=== PATIENT | female | born 1945 | race Caucasian/White ===

== ENCOUNTER 2017-04-18 16:41 | Observation (INO) | payer MEDICAID, MEDICARE ==
--- NOTE | 2017-04-18 17:01 | RADIOLOGY REPORT (SQ) ---
EXAM DESCRIPTION: CHEST SINGLE VIEW COMPLETED DATE/TIME: 04/18/2017 4:53 pm REASON FOR STUDY: STROKE ALERT COMPARISON: 01/19/2012 EXAM PARAMETERS: NUMBER OF VIEWS: One view. TECHNIQUE: Single frontal radiographic view of the chest acquired. RADIATION DOSE: NA LIMITATIONS: None. FINDINGS: LUNGS AND PLEURA: No opacities, masses or pneumothorax. No pleural effusion. MEDIASTINUM AND HILAR STRUCTURES: No masses. Contour normal. HEART AND VASCULAR STRUCTURES: Heart normal in size. Normal vasculature. BONES: No acute findings. HARDWARE: None in the chest. OTHER: No other significant finding. IMPRESSION: NO ACUTE RADIOGRAPHIC FINDING IN THE CHEST. TECHNICAL DOCUMENTATION: JOB ID: [id number]
--- NOTE | 2017-04-18 17:03 | ER Document Report ---
ED Neuro Symptoms/Deficit - General Stated Complaint: STROKE LIKE SYMPTOMS Time Seen by Provider: 04/18/17 16:57 Information source: Patient Notes: 72-year-old female with past medical history as recorded including a CVA who presents today with the onset yesterday according to the patient when she woke up feeling a little "off balance" and having some difficulty speaking. Patient told her son whom she was visiting in [place] [place] who wanted to take the patient to the hospital but the patient refused. She was scheduled to get on the bus to come back to [place] that she did. When she got off the bus the daughter noted that she was having some gait instability and took her immediately here to the emergency department. Patient denies any headache, chest pain, shortness of breath, abdominal pain, nausea, vomiting, fevers, blurry vision, or obvious weakness or numbness at this time. Patient states she believes she used to be on blood thinners but does not remember which blood thinning medication she was taking. - HPI Patient complains to provider of: Other - See above Onset: Other - See above Awoke with symptoms: Yes Symptoms are: Intermittent episodes Duration: Better, Gone now Quality of pain: No pain Severity: Moderate Pain Level: Denies Context: Other - See above Loss of consciousness: No loss of consciousness Was STROKE ALERT Called: Yes Baseline Cognitive: Alert, oriented X 3 Baseline Gait: Walks w/o assistance Alert To: Name/Voice Patient Orientation: Person, Place, Time Character of altered mental status: Agitated Associated symptoms: Other - See above Similar symptoms previously: Yes Recently seen / treated by doctor: No - Related Data Allergies/Adverse Reactions: ampicillin [Ampicillin] Allergy (Mild, Verified 04/18/17 17:26) rash Home Medications: Current Home Medications Alprazolam 0.25 mg PO DAILY 04/18/17 [History] Donepezil HCl [Aricept] 10 mg PO DAILY 04/18/17 [History] Levothyroxine Sodium [Synthroid 0.1 mg Tablet] 0.1 mg PO DAILY 04/18/17 [History ] Memantine HCl [Namenda Xr] 28 mg PO DAILY 04/18/17 [History] Metoprolol Succinate [Toprol Xl] 50 mg PO BID 04/18/17 [History] Omeprazole 40 mg PO TID 04/18/17 [History] Past Medical History - General Information source: Patient - Social History Smoking Status: Unknown if Ever Smoked Cigarette use (# per day): No Chew tobacco use (# tins/day): No Smoking Education Provided: No Family History: Reviewed & Not Pertinent - Past Medical History Cardiac Medical History: Reports: Hx Hypercholesterolemia, Hx Hypertension, Hx Peripheral Vascular Disease Denies: Hx Atrial Fibrillation, Hx Congestive Heart Failure, Hx Coronary Artery Disease, Hx Heart Attack, Hx Heart Murmur Pulmonary Medical History: Denies: Hx Tuberculosis Neurological Medical History: Reports: Hx Cerebrovascular Accident. Denies: Hx Seizures Endocrine Medical History: Reports: Hx Hypothyroidism. Denies: Hx Graves' Disease, Hx Hyperthyroidism Renal/ Medical History: Denies: Hx End Stage Renal Disease, Hx Kidney Stones, Hx Peritoneal Dialysis GI Medical History: Reports: Hx Gastroesophageal Reflux Disease, Hx Hiatal Hernia, Hx Irritable Bowel, Hx Ulcer. Denies: Hx Crohn's Disease, Hx Liver Failure Musculoskeltal Medical History: Denies Hx Arthritis, Denies Hx Fibromyalgia, Denies Hx Multiple Sclerosis, Denies Hx Muscular Dystrophy Psychiatric Medical History: Reports: Hx Dementia, Hx Depression Denies: Hx Bipolar Disorder, Hx Post Traumatic Stress Disorder, Hx Schizophrenia Traumatic Medical History: Denies: Hx Fractures Past Surgical History: Reports: Hx Appendectomy, Hx Cholecystectomy, Hx Hysterectomy, Hx Tonsillectomy. Denies: Hx Bowel Surgery, Hx Section, Hx Colostomy, Hx Coronary Artery Bypass Graft, Hx Gastric Bypass Surgery, Hx Herniorrhaphy, Hx Mastectomy, Hx Pacemaker, Hx Tubal Ligation - Immunizations Hx Diphtheria, Pertussis, Tetanus Vaccination: Yes Hx Pneumococcal Vaccination: 12/01/12 Review of Systems - Review of Systems Constitutional: denies: Fever EENT: denies: Eye discharge, Nose discharge Cardiovascular: denies: Chest pain, Palpitations Respiratory: denies: Short of breath Gastrointestinal: denies: Vomiting Genitourinary: denies: Dysuria Musculoskeletal: denies: Leg swelling Skin: Other - no hives. denies: Rash Neurological/Psychological: Other - no slurred speech -: Yes All other systems reviewed and negative Physical Exam - Vital signs Vitals: Resp Pulse Ox 18 100 04/18/17 16:56 04/18/17 16:56 Notes: Reviewed vital signs and nursing note as charted by RN. CONSTITUTIONAL: Alert and oriented and responds appropriately to questions. Well -appearing; well-nourished HEAD: Normocephalic; atraumatic EYES: PERRL; Conjunctivae clear, sclerae non-icteric ENT: Normal nose; no rhinorrhea; moist mucous membranes; pharynx without lesions noted NECK: Supple without meningismus; no carotid bruits; non-tender; no cervical lymphadenopathy, no masses CARD: Regular rate and rhythm; no murmurs, no clicks, no rubs, no gallops; symmetric distal pulses RESP: Normal chest excursion without splinting or tachypnea; breath sounds clear and equal bilaterally; no wheezes, no rhonchi, no rales ABD/GI: Normal bowel sounds; non-distended; soft, non-tender, no rebound, no guarding; no palpable organomegaly or masses BACK: The back appears normal and is non-tender to palpation, there is no CVA tenderness EXT: Normal ROM in all joints; non-tender to palpation; no cyanosis, no effusions, no edema SKIN: Normal color for age and race; warm; dry; good turgor; capillary refill < 2 seconds; no acute lesions noted NEURO: CN II through XII are intact. Patient has 5 out of 5 bilateral upper and lower extremity strength with sensation intact to light touch. Normal cerebellar examination. No nystagmus. PSYCH: The patient's mood and manner are appropriate. Grooming and personal hygiene are appropriate. Course - Re-evaluation Re-evalutation: 04/18/17 16:59 Given the history and physical examination, with the onset of symptoms yesterday , I do not believe that the patient is a TPA candidate. Patient currently has no focal neurological deficits. CT scan has been performed. Vital signs are stable. 04/18/17 17:02 Given the above history and physical examination we will order a CT scan of the head, basic labs, cardiac labs, EKG, and reassess. I would like to rule out a possible TIA type incident. Patient denies taking too much Ativan. She denies drinking any alcohol. 04/18/17 17:39 EKG shows a heart rate of 55, normal sinus rhythm, normal axis, no obvious ST elevation or depression. Minimally prolonged QT interval. Radiology called me and states he sees a very extremely small punctate area that could be a small bleed. He recommended repeat CT imaging at 7 PM. I will hold on aspirin until at that time. 04/18/17 19:[address] scan of the head shows no change. Radiologist states he believes it to be extremely unlikely to be a small punctate bleed. Patient still has no focal neurological deficits except possibly some mild expressive aphasia. Patient will be admitted for further evaluation. - Vital Signs Vital signs: Temp Pulse Resp BP Pulse Ox 98.0 F 59 L 18 154/81 H 97 04/18/17 17:05 04/18/17 17:05 04/18/17 19:11 04/18/17 19:11 04/18/17 19:11 - Laboratory Result Diagrams: 04/18/17 17:04 04/18/17 17:04 Laboratory results interpreted by me: 04/18/17 17:04 RDW 14.2 H Lymphocytes % 45.4 H Discharge - Discharge Clinical Impression: Expressive aphasia Condition: Fair Disposition: ADMITTED OBSERVATION Unit Admitted: Telemetry
[2017-04-18 17:13] LABS: ABSOLUTE EOSINOPHILS # (AUTO) 0.1 10^3/uL (0.0-0.6); ABSOLUTE LYMPHOCYTES (AUTO) 3.1 10^3/uL (0.5-4.7); ABSOLUTE MONOCYTES (AUTO) 0.4 10^3/uL (0.1-1.4); ABSOLUTE NEUT (AUTO) 3.2 10^3/uL (1.7-8.2); BASOPHILS % (AUTO) 0.7 % (0-2); EOSINOPHILS % (AUTO) 0.9 % (0-6); HEMATOCRIT 39.4 % (36.0-47.0); HEMOGLOBIN 13.5 g/dL (12.0-15.5); HGB HCT DIFFERENCE 1.1; LYMPHOCYTES % (AUTO) 45.4 % (13-45); MEAN CORPUSCULAR HEMOGLOBIN 31.6 pg (27.0-33.4); MEAN CORPUSCULAR HGB CONC 34.1 g/dL (32.0-36.0); MEAN CORPUSCULAR VOLUME 93 fl (80-97); MONOCYTES % (AUTO) 6.6 % (3-13); RED BLOOD COUNT 4.26 10^6/uL (3.72-5.28); RED CELL DISTRIBUTION WIDTH 14.2 % (11.5-14.0); SEGMENTED NEUTROPHILS % (AUTO) 46.4 % (42-78); WHITE BLOOD COUNT 6.8 10^3/uL (4.0-10.5)
[2017-04-18 17:25] LABS: ANION GAP 12 (5-19); BLOOD UREA NITROGEN 11 mg/dL (7-20); CALCIUM 9.1 mg/dL (8.4-10.2); CARBON DIOXIDE 24 mmol/L (22-30); CHLORIDE 104 mmol/L (98-107); CREATININE RESULT 0.89 mg/dL (0.52-1.25); GLUCOSE 77 mg/dL (75-110); POTASSIUM 3.6 mmol/L (3.6-5.0); SODIUM 139.5 mmol/L (137-145)
[2017-04-18 17:26] LABS: PROTHROMBIN TIME 12.2 SEC (11.4-15.4)
[2017-04-18 17:27] LABS: PARTIAL THROMBOPLASTIN TIME 24.3 SEC (23.5-35.8)
--- NOTE | 2017-04-18 17:35 | RADIOLOGY REPORT (SQ) ---
EXAM DESCRIPTION: CT HEAD WITHOUT COMPLETED DATE/TIME: 04/18/2017 4:49 pm REASON FOR STUDY: STROKE ALERT COMPARISON: None. TECHNIQUE: Axial images acquired through the brain without intravenous contrast. Images reviewed wi th bone, brain and subdural windows. Images stored on PACS. All CT scanners at this facility use dose modulation, iterative reconstruction, and/or weight based d osing when appropriate to reduce radiation dose to as low as reasonably achievable (ALARA). [facility]: Dose Right [facility]: CareDose [facility]: Dose Right [facility]: Teradose 4D [facility]: [employer] RADIATION DOSE: mGy. LIMITATIONS: None. FINDINGS: VENTRICLES: Normal size and contour. CEREBRUM: No masses. No midline shift. Normal dhillon/white matter differentiation. No evidence for a cute infarction. On image 17 series 2 there is an area of faintly increased opacification in the rig ht basal ganglia just lateral to the genu of the internal capsule. This is very faintly seen on imag e 16. There are occasional small areas of decreased attenuation in the white matter tracts. CEREBELLUM: There is a small area of encephalomalacia in the right lobe of the cerebellum. No khanh s. No hemorrhage. No alteration of density. No evidence for acute infarction. EXTRAAXIAL SPACES: No fluid collections. No masses. ORBITS AND GLOBE: No intra- or extraconal masses. Normal contour of globe without masses. CALVARIUM: No fracture. PARANASAL SINUSES: No fluid or mucosal thickening. SOFT TISSUES: No mass or hematoma. OTHER: No other significant finding. IMPRESSION: 1. There are mild chronic microvascular ischemic changes. 2. There is a small area of slightly increased attenuation in the basal ganglia on the right as desc ribed. This likely represents faint calcification. This is perhaps somewhat hinted at on a CT from 10/15/2008. A tiny hemorrhage cannot entirely be excluded, unfortunately. 3. There is a small old right cerebellar infarct. COMMENT: The findings were discussed with emergency room physician at 1729 hours on this date. TECHNICAL DOCUMENTATION: JOB ID: [id number] Quality ID # [id number]: Final reports with documentation of one or more dose reduction techniques (e.g., Au tomated exposure control, adjustment of the mA and/or kV according to patient size, use of iterative reconstruction technique) 2010 [employer]- All Rights Reserved
--- NOTE | 2017-04-18 17:50 | EKG REPORT ---
SEVERITY:- BORDERLINE ECG - SINUS RHYTHM BORDERLINE PROLONGED QT INTERVAL : Confirmed by: Catina Grady 18-Apr-2017 17:50:14
--- NOTE | 2017-04-18 19:19 | RADIOLOGY REPORT (SQ) ---
EXAM DESCRIPTION: CT HEAD WITHOUT COMPLETED DATE/TIME: 04/18/2017 7:06 pm REASON FOR STUDY: 7pm, repeat requested by radiologist COMPARISON: 04/18/2017 TECHNIQUE: Axial images acquired through the brain without intravenous contrast. Images reviewed wi th bone, brain and subdural windows. Images stored on PACS. All CT scanners at this facility use dose modulation, iterative reconstruction, and/or weight based d osing when appropriate to reduce radiation dose to as low as reasonably achievable (ALARA). [facility]: Dose Right [facility]: CareDose [facility]: Dose Right [facility]: Teradose 4D [facility]: [employer] RADIATION DOSE: mGy. LIMITATIONS: None. FINDINGS: VENTRICLES: Prominent. CEREBRUM: The previously described area faint increase opacification in the right basal ganglia is ag ain identified and appears unchanged. No midline shift. Areas of low density in the white matter mos t likely due to chronic micro-vascular ischemic change. No evidence for acute infarction. CEREBELLUM: No masses. No hemorrhage. The previously described low density area in the right cerebe llar hemisphere is again identified. No alteration of density. No evidence for acute infarction. EXTRAAXIAL SPACES: Mild age-related involutional change. No fluid collections. No masses. ORBITS AND GLOBE: No intra- or extraconal masses. Normal contour of globe without masses. CALVARIUM: No fracture. PARANASAL SINUSES: No fluid or mucosal thickening. SOFT TISSUES: No mass or hematoma. OTHER: No other significant finding. IMPRESSION: MILD CHRONIC CHANGES OF ATROPHY AND MICROVASCULAR ISCHEMIA. The previously described sm all area of slightly increased attenuation in the basal ganglia on the right is again identified and appears unchanged. Again this most likely represents faint calcification. Again the possibility of a tiny hemorrhagic area cannot be completely excluded but is felt to be less likely. Clinical correl ation and followup is recommended if clinically warranted. Other findings as noted above TECHNICAL DOCUMENTATION: JOB ID: [id number] Quality ID # [id number]: Final reports with documentation of one or more dose reduction techniques (e.g., Au tomated exposure control, adjustment of the mA and/or kV according to patient size, use of iterative reconstruction technique) 2010 [email or web address]- All Rights Reserved
[2017-04-18] MEDS ORDERED: ASPIRIN 325 MG TABLET PO ONE (20:00)
[2017-04-18] MEDS: ATORVASTATIN CALCIUM 80 MG TABLET PO SCH (21:36)
[2017-04-19 05:15] LABS: CHOLESTEROL 175.97 mg/dL (0-200); Direct HDL 44 mg/dL (>40); TRIGLYCERIDES 349 mg/dL (<150)
[2017-04-19 05:21] LABS: VLDL CHOLESTEROL 69.8 mg/dL (10-31)
[2017-04-19 05:26] LABS: DIRECT LDL 87 mg/dL (<100)
--- NOTE | 2017-04-19 05:46 | PDOC H&P ---
History of Present Illness Admission Date/PCP: 04/18/17 19:29 HALLE SANDRA MD Patient complains of: "I cannot remember" History of Present Illness: TRUPTI GUTIERRES is a 72 year old female with a past medical history of tobacco dependence, dementia, anxiety, hypothyroidism and remote TIA with endarterectomy. There is been her usual state of health until approximately 24 hours prior to presentation. Patient states she was in [place] and having difficulty with speech and walking but decided to take the bus to [facility]. Upon arrival she comes to the emergency department for evaluation notable for hypertension of 160/90 with sinus rhythm and otherwise without symptoms yet referred to the hospitalist for evaluation. Patient is a poor historian but admits to recently running out of 2 medications for she cannot recall. She otherwise admits a to an acute on chronic neck pain after her bus journey, requesting a cigarette. Past Medical History Cardiac Medical History: Reports: Hyperlipidema, Hypertension, Peripheral Vascular Disease Denies: Atrial Fibrillation, Congestive Heart Failure, Coronary Artery Disease, Myocardial Infarction, Heart Murmur Pulmonary Medical History: Denies: Tuberculosis Neurological Medical History: Denies: Seizures Endocrine Medical History: Reports: Hypothyroidism Denies: Hyperthyroidism Renal/ Medical History: Denies: End Stage Renal Disease GI Medical History: Reports: Gastroesophageal Reflux Disease, Hiatal Hernia Denies: Crohn's Disease Musculoskeltal Medical History: Denies: Arthritis, Fibromyalgia Psychiatric Medical History: Reports: Dementia, Depression Denies: Bipolar Disorder, Post Traumatic Stress Disorder Past Surgical History Past Surgical History: Reports: Appendectomy, Carotid Endarterectomy, Cholecystectomy, Hysterectomy, Tonsillectomy Denies: Amputation, Section, Colostomy, Coronary Artery Bypass Graft , Gastric Bypass Surgery, Herniorrhaphy, Mastectomy, Pacemaker, Tubal Ligation Social History Information Source: Patient, Emergency Med Personnel Lives with: Family Smoking Status: Current Every Day Smoker Frequency of Alcohol Use: Occasional Hx Recreational Drug Use: No Drugs: None Hx Prescription Drug Abuse: No - Advance Directive Resuscitation Status: Full Code Family History Family History: Hypertension Parental Family History Reviewed: Yes Children Family History Reviewed: Yes Sibling(s) Family History Reviewed.: Yes Medication/Allergy Home Medications: Alprazolam 0.25 mg PO DAILY 04/18/17 Donepezil HCl [Aricept] 10 mg PO DAILY 04/18/17 Levothyroxine Sodium [Synthroid 0.1 mg Tablet] 0.1 mg PO DAILY 04/18/17 Memantine HCl [Namenda Xr] 28 mg PO DAILY 04/18/17 Metoprolol Succinate [Toprol Xl] 50 mg PO BID 04/18/17 Omeprazole 40 mg PO TID 04/18/17 Allergies/Adverse Reactions: ampicillin [Ampicillin] Allergy (Mild, Verified 04/18/17 17:26) rash Review of Systems Constitutional: ABSENT: chills, fever(s), headache(s), weight gain, weight loss Eyes: ABSENT: visual disturbances Ears: ABSENT: hearing changes Cardiovascular: ABSENT: chest pain, dyspnea on exertion, edema, orthropnea, palpitations Respiratory: ABSENT: cough, hemoptysis Gastrointestinal: ABSENT: abdominal pain, constipation, diarrhea, hematemesis, hematochezia, nausea, vomiting Genitourinary: ABSENT: dysuria, hematuria Musculoskeletal: ABSENT: joint swelling Integumentary: ABSENT: rash, wounds Neurological: PRESENT: memory loss. ABSENT: abnormal gait, abnormal speech, confusion, dizziness, focal weakness, frequent falls, lack of coordination, syncope, vertigo, weakness Psychiatric: PRESENT: anxiety. ABSENT: depression, homidical ideation, suicidal ideation Endocrine: ABSENT: cold intolerance, heat intolerance, polydipsia, polyuria Hematologic/Lymphatic: ABSENT: easy bleeding, easy bruising Physical Exam Vital Signs: Temp Pulse Resp BP Pulse Ox 97.7 F 59 L 16 105/54 L 95 04/19/17 04:25 04/19/17 04:25 04/19/17 04:25 04/19/17 04:25 04/19/17 04:25 Intake & Output 04/17/17 04/18/17 04/19/17 11:59 11:59 11:59 Output Total 300 Balance -300 Results Laboratory Results: 04/19/17 04:22 Triglycerides 349 H Cholesterol 175.97 LDL Cholesterol Direct 87 VLDL Cholesterol 69.8 H HDL Cholesterol 44 Impressions: Chest X-Ray 04/18/17 00:00 IMPRESSION: NO ACUTE RADIOGRAPHIC FINDING IN THE CHEST. Head CT 04/18/17 18:23 IMPRESSION: MILD CHRONIC CHANGES OF ATROPHY AND MICROVASCULAR ISCHEMIA. The previously described small area of slightly increased attenuation in the basal ganglia on the right is again identified and appears unchanged. Again this most likely represents faint calcification. Again the possibility of a tiny hemorrhagic area cannot be completely excluded but is felt to be less likely. Clinical correlation and followup is recommended if clinically warranted. Other findings as noted above Assessment & Plan - Diagnosis (1) TIA (transient ischemic attack) Is this a current diagnosis for this admission?: YesPlan: Patient is a poor historian will observe on a monitored bed receiving aspirin, Lipitor, permissive hypertension. CT of the head is unremarkable obtain a carotid artery ultrasound given history of endarterectomy, evaluate TSH and lipid profile. (2) Hypothyroidism Is this a current diagnosis for this admission?: YesPlan: Evaluate TSH she appears euthyroid (3) Anxiety Is this a current diagnosis for this admission?: YesPlan: Likely baseline anxiety continue outpatient regiment limit benzodiazepine consider discharge planning consult. (4) Dementia Is this a current diagnosis for this admission?: YesPlan: Continue outpatient regiment (5) Tobacco abuse Is this a current diagnosis for this admission?: YesPlan: Tobacco Dependence patient received tobacco cessation counseling and offered nicotine replacement options (6) Expressive aphasia Is this a current diagnosis for this admission?: YesPlan: Currently unable to appreciate suspected anxiety reaction continue TIA workup. - Time Time Spent: 30 to 50 Minutes
[2017-04-19] MEDS: DONEPEZIL HCL 5 MG TABLET PO SCH (09:24)
[2017-04-19] MEDS: ALPRAZOLAM 0.25 MG TABLET PO SCH (09:24)
[2017-04-19] MEDS: LEVOTHYROXINE SODIUM 0.1 MG TABLET PO SCH (09:24)
[2017-04-19] MEDS: DOCUSATE SODIUM 100 MG CAPSULE PO SCH ×2 (09:25→17:49)
[2017-04-19] MEDS ORDERED: ASPIRIN 81 MG TABLET, CHEWABLE PO SCH (10:00)
[2017-04-19] MEDS ORDERED: (PENDING PHARMACY ID) (Donepezil Hcl [Aricept] 10 MG) PO SCH (10:00)
--- NOTE | 2017-04-19 10:31 | PDOC PROGRESS REPORT ---
Subjective Progress Note for:: 04/19/17 Subjective:: Patient is feeling better this morning. Slurring of speech is much better. Patient has chronic swallowing difficulty. Family at bedside who reported patient has generalized weakness rather than focal. Patient felt dizzy upon [place] bus station when family picked her up prior to bringing her to the hospital. No nausea or vomiting nor flank pain reported. Physical Exam Vital Signs: Temp Pulse Resp BP Pulse Ox 98.5 F 62 19 135/56 H 96 04/19/17 07:51 04/19/17 07:51 04/19/17 07:51 04/19/17 07:51 04/19/17 07:51 Intake & Output 04/18/17 04/19/17 04/20/17 06:59 06:59 06:59 Intake Total 227 Output Total 300 Balance -73 Weight 48.9 kg General appearance: PRESENT: no acute distress, cooperative Head exam: PRESENT: normocephalic Eye exam: PRESENT: EOMI Mouth exam: PRESENT: moist, neck supple Neck exam: ABSENT: JVD Respiratory exam: PRESENT: clear to auscultation anitra. ABSENT: rhonchi, wheezes Cardiovascular exam: PRESENT: RRR. ABSENT: gallop GI/Abdominal exam: PRESENT: normal bowel sounds, soft. ABSENT: distended, tenderness Extremities exam: ABSENT: pedal edema Neurological exam: PRESENT: alert, awake, oriented to situation Skin exam: PRESENT: dry, warm. ABSENT: cyanosis Results Laboratory Results: 04/19/17 04:22 Triglycerides 349 H Cholesterol 175.97 LDL Cholesterol Direct 87 VLDL Cholesterol 69.8 H HDL Cholesterol 44 Impressions: Chest X-Ray 04/18/17 00:00 IMPRESSION: NO ACUTE RADIOGRAPHIC FINDING IN THE CHEST. Head CT 04/18/17 18:23 IMPRESSION: MILD CHRONIC CHANGES OF ATROPHY AND MICROVASCULAR ISCHEMIA. The previously described small area of slightly increased attenuation in the basal ganglia on the right is again identified and appears unchanged. Again this most likely represents faint calcification. Again the possibility of a tiny hemorrhagic area cannot be completely excluded but is felt to be less likely. Clinical correlation and followup is recommended if clinically warranted. Other findings as noted above Assessment & Plan - Diagnosis (1) TIA (transient ischemic attack) Qualifiers: Transient cerebral ischemia type: unspecified Qualified Code(s): G45.9 - Transient cerebral ischemic attack, unspecified Is this a current diagnosis for this admission?: Yes (2) Carotid atherosclerosis Qualifiers: Laterality: unspecified laterality Qualified Code(s): I65.29 - Occlusion and stenosis of unspecified carotid artery Is this a current diagnosis for this admission?: Yes (3) Dyslipidemia Is this a current diagnosis for this admission?: Yes (4) Essential hypertension Is this a current diagnosis for this admission?: Yes (5) Peripheral vascular disease Is this a current diagnosis for this admission?: Yes (6) Anxiety and depression Is this a current diagnosis for this admission?: Yes (7) Gastroesophageal reflux disease Qualifiers: Esophagitis presence: without esophagitis Qualified Code(s): K21.9 - Gastro-esophageal reflux disease without esophagitis Is this a current diagnosis for this admission?: Yes (8) Dementia Qualifiers: Dementia type: unspecified type Dementia behavioral disturbance: without behavioral disturbance Qualified Code(s): F03.90 - Unspecified dementia without behavioral disturbance Is this a current diagnosis for this admission?: Yes (9) Hypothyroidism Qualifiers: Hypothyroidism type: acquired Qualified Code(s): E03.9 - Hypothyroidism, unspecified Is this a current diagnosis for this admission?: Yes - Plan Summary Plan Summary: We are going to change aspirin to Aggrenox. We will obtain MRI of the brain. Awaiting carotid Doppler. Begin physical therapy.
[2017-04-19] MEDS: CYCLOBENZAPRINE HCL 10 MG TABLET PO PRN (10:56)
--- NOTE | 2017-04-19 13:00 | RADIOLOGY REPORT (SQ) ---
EXAM DESCRIPTION: MRI HEAD WITHOUT COMPLETED DATE/TIME: 04/19/2017 12:42 pm REASON FOR STUDY: Stroke, intracranial hemorrhage COMPARISON: 11/29/[address] brain 04/18/2017 TECHNIQUE: Multiplanar imaging includes non-contrasted T1, T2, FLAIR, and diffusion with ADC map seq uences. Images stored on PACS. LIMITATIONS: None. FINDINGS: ANATOMY: No developmental anomalies. Normal vascular flow voids. Pituitary fossa normal. CSF SPACES: Normal in size and contour. No hemorrhage. CEREBRUM: Stable diffuse increased chronic bifrontal and biparietal white matter signal changes from chronic small vessel disease. This is similar compared to 11/29/2012. No MR evidence of acute large territory ischemic change, acute intracranial hemorrhage, mass effect, or midline shift. 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 No signal abnormalities worrisom e for acute ischemic change in the posterior fossa. No hemorrhage. No edema, masses or mass effect. Internal auditory canals, cerebello-pontine angles unremarkable. Minimal left mastoid air cell fluid . DIFFUSION IMAGING: Negative for acute or sub-acute infarction. ORBITS: No masses. Globes normal. PARANASAL SINUSES: No fluid levels. Mucosa normal. OTHER: No other significant finding. 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 TECHNICAL DOCUMENTATION: JOB ID: [id number] [employer]- All Rights Reserved
--- NOTE | 2017-04-19 15:18 | RADIOLOGY REPORT (SQ) ---
EXAM DESCRIPTION: CAROTID DOPPLER COMPLETED DATE/TIME: 04/19/2017 2:56 pm REASON FOR STUDY: Expressive aphasia, history endarterectomy? COMPARISON: Carotid Doppler 11/30/2012 CT brain 04/18/2017 MRI brain 04/19/2017 TECHNIQUE: Grayscale ultrasound, Doppler velocity and spectra, and color Doppler images acquired of the extra-cranial carotid and vertebral arteries. Images stored on PACS. LIMITATIONS: None. FINDINGS: RIGHT CAROTID CCA Velocities: Within normal limits. ICA Velocities Peak systolic 0.48 m/s. End diastolic 0.16 m/s. Proximal ICA/CCA peak systolic ratio 0.8. Spectra normal. No significant plaque. Patient is post right carotid endarterectomy LEFT CAROTID CCA Velocities: Within normal limits. ICA Velocities Peak systolic 1.65 m/s. End diastolic 0.35 m/s. Proximal ICA/CCA peak systolic ratio 2.8. There is heavy atherosclerotic arterial vascular calcification at the left carotid bifurcation partly shadowing the proximal internal carotid artery. Velocities distal to the shadowing plaque suggest 5 0 to 69% diameter narrowing. There is stenosis of the left external carotid artery, with a peak syst olic velocity of 4 m/sec. VERTEBRAL ARTERIES: Antegrade flow. Normal waveforms. SUBCLAVIAN ARTERIES: Not evaluated OTHER: No other significant finding. IMPRESSION: Post right carotid endarterectomy without recurrent stenosis Heavy atherosclerotic plaque at the left carotid bifurcation with 50 to 69% proximal left ICA stenosi s. Antegrade pulsatile vertebral artery flow bilaterally COMMENT: Quality ID #[id number]: Velocity criteria are extrapolated from the diameter data as defined by t he Society of Radiologists in Ultrasound Consensus Conference. Radiology 2003: 229; 340-346. TECHNICAL DOCUMENTATION: JOB ID: [id number]- All Rights Reserved
[2017-04-19 16:10] LABS: APPEARANCE,URINE CLEAR; BILIRUBIN,URINE NEGATIVE (NEGATIVE); GLUCOSE, URINE NEGATIVE (NEGATIVE); KETONES,URINE NEGATIVE (NEGATIVE); LEUKOCYTE ESTERASE,URINE NEGATIVE (NEGATIVE); NITRITE,URINE NEGATIVE (NEGATIVE); PROTEIN,URINE NEGATIVE (NEGATIVE); URINE SPECIFIC GRAVITY 1.004; UROBILINOGEN,URINE NEGATIVE mg/dL (<2.0)
[2017-04-19] MEDS: ATORVASTATIN CALCIUM 80 MG TABLET PO SCH (21:25)
[2017-04-19] MEDS: ASPIRIN/DIPYRIDAMOLE 25-200 MG 1 CAP.SR CPMP.12HR PO SCH (21:25)
[2017-04-20] MEDS: DONEPEZIL HCL 5 MG TABLET PO SCH (09:02)
[2017-04-20] MEDS: LEVOTHYROXINE SODIUM 0.1 MG TABLET PO SCH (09:03)
[2017-04-20] MEDS: CYCLOBENZAPRINE HCL 10 MG TABLET PO PRN (09:03)
[2017-04-20] MEDS: ALPRAZOLAM 0.25 MG TABLET PO SCH (09:03)
[2017-04-20] MEDS: ASPIRIN/DIPYRIDAMOLE 25-200 MG 1 CAP.SR CPMP.12HR PO SCH (09:03)
[2017-04-20] MEDS: DOCUSATE SODIUM 100 MG CAPSULE PO SCH (09:03)
[2017-04-20] MEDS ORDERED: (PENDING PHARMACY ID) (Memantine Hcl [Namenda Xr] 28 MG) PO SCH (10:00)
[2017-04-20] MEDS ORDERED: METOPROLOL SUCCINATE 50 MG TAB.SR.24H PO ONE (11:00)
--- NOTE | 2017-04-20 11:35 | PDOC DISCHARGE SUMMARY ---
General - Admit/Disc Date/PCP Admission Date/Primary Care Provider: 04/18/17 19:29 HALLE SANDRA MD Discharge Date: 04/20/17 - Discharge Diagnosis (1) TIA (transient ischemic attack) Is this a current diagnosis for this admission?: Yes (2) Carotid atherosclerosis Is this a current diagnosis for this admission?: Yes (3) Dyslipidemia Is this a current diagnosis for this admission?: Yes (4) Essential hypertension Is this a current diagnosis for this admission?: Yes (5) Peripheral vascular disease Is this a current diagnosis for this admission?: Yes (6) Anxiety and depression Is this a current diagnosis for this admission?: Yes (7) Gastroesophageal reflux disease Is this a current diagnosis for this admission?: Yes (8) Dementia Is this a current diagnosis for this admission?: Yes (9) Hypothyroidism Is this a current diagnosis for this admission?: Yes - Additional Information Resuscitation Status: Full Code Discharge Diet: Cardiac - Low-fat low-salt Discharge Activity: Activity As Tolerated, Balance Activity w/Rest Home Medications: Alprazolam 0.25 mg PO DAILY 04/18/17 Donepezil HCl [Aricept] 10 mg PO QPM 04/18/17 Levothyroxine Sodium [Synthroid 0.1 mg Tablet] 0.1 mg PO DAILY 04/18/17 Memantine HCl [Namenda Xr] 28 mg PO DAILY 04/18/17 Omeprazole 40 mg PO [id number] 04/18/17 Atorvastatin Calcium [Lipitor 80 mg Tablet] 80 mg PO QHS 04/19/17 Aspirin/Dipyridamole [Aggrenox 25 mg/200 mg Capsule SA] 1 cap.sr PO Q12 #60 cpmp.12hr 04/20/17 Cyclobenzaprine HCl [Flexeril 10 mg Tablet] 5 mg PO Q8HP PRN #20 tablet Metoprolol Succinate [Toprol Xl] 75 mg PO Q12 #0 04/20/17 Additional Information: Echocardiogram as outpatient History of Present Illness Patient complains of: speech difficulty History of Present Illness: TRUPTI GUTIERRES is a 72 year old female Hospital Course Hospital Course: The patient was admitted to [facility]. The patient was started on aspirin. This was eventually changed to Aggrenox. Patient had an MRI of the brain which did not reveal any stroke. The patient had a carotid Doppler and showing 50-69% stenosis on the left side. The patient had prior endarterectomy on the right. The patient's symptomatologies resolved. There is no focal weakness. Speech returned back to baseline. Patient wanting to go home. Course however was noted for neck discomfort and stiffness that improve with muscle relaxants. The rest of the hospital stay is unremarkable. Patient advised to have an echocardiogram as outpatient with Dr. Grady or primary care physician. Physical Exam Vital Signs: Temp Pulse Resp BP Pulse Ox 98.8 F 77 20 172/84 H 98 04/20/17 07:47 04/20/17 07:47 04/20/17 07:47 04/20/17 07:47 04/20/17 07:47 Intake & Output 04/19/17 04/20/17 04/21/17 06:59 06:59 06:59 Intake Total 227 1189 Output Total 300 400 Balance -73 789 Weight 48.9 kg 50.5 kg General appearance: PRESENT: no acute distress, cooperative Head exam: PRESENT: normocephalic Eye exam: PRESENT: EOMI Mouth exam: PRESENT: moist, neck supple Neck exam: ABSENT: JVD Respiratory exam: PRESENT: clear to auscultation anitra Cardiovascular exam: PRESENT: RRR. ABSENT: gallop GI/Abdominal exam: PRESENT: soft. ABSENT: distended, tenderness Extremities exam: ABSENT: pedal edema Neurological exam: PRESENT: alert, awake, oriented to situation Skin exam: PRESENT: dry, warm. ABSENT: cyanosis Results Laboratory Results: 04/19/17 15:00 Urine Color STRAW Urine Appearance CLEAR Urine pH 6.0 Ur Specific Warren 1.004 Urine Protein NEGATIVE Urine Glucose (UA) NEGATIVE Urine Ketones NEGATIVE Urine Blood NEGATIVE Urine Nitrite NEGATIVE Ur Leukocyte Esterase NEGATIVE Urine WBC (Auto) 0 Urine RBC (Auto) 1 Impressions: Chest X-Ray 04/18/17 00:00 IMPRESSION: NO ACUTE RADIOGRAPHIC FINDING IN THE CHEST. Head CT 04/18/17 18:23 IMPRESSION: MILD CHRONIC CHANGES OF ATROPHY AND MICROVASCULAR ISCHEMIA. The previously described small area of slightly increased attenuation in the basal ganglia on the right is again identified and appears unchanged. Again this most likely represents faint calcification. Again the possibility of a tiny hemorrhagic area cannot be completely excluded but is felt to be less likely. Clinical correlation and followup is recommended if clinically warranted. Other findings as noted above Carotid Doppler Study 04/19/17 00:00 IMPRESSION: Post right carotid endarterectomy without recurrent stenosis Heavy atherosclerotic plaque at the left carotid bifurcation with 50 to 69% proximal left ICA stenosis. 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 Qualifiers PATEINT BEING DISCHARGED WITH ANY OF THE FOLLOWING DIAGNOSIS?: No Plan Discharge Plan: Follow-up with primary care physician in 1 week. cardiology appointment for echocardiogram as scheduled. Time Spent: Less than 30 Minutes
[2017-04-20] MEDS ORDERED: ACETAMINOPHEN 325 MG TABLET PO PRN (11:44)
[2017-04-20 11:45] VITALS: BP 152/80
[2017-04-20] MEDS ORDERED: METOPROLOL SUCCINATE 50 MG TAB.SR.24H PO SCH (22:00)
== END 2017-04-20 12:32 | disposition home or self-care (01) ==
LOC: ER 16:41 → EH 19:29 → UNDOADMOB 19:46 → EH 19:46 → 3W 22:00 → EH 22:00
PROVIDERS: ADMIT Internal Medicine; ATTEND Internal Medicine
DX: G45.9 Transient cerebral ischemic attack, unspecified (principal); I65.22 Occlusion and stenosis of left carotid artery; E78.5 Hyperlipidemia, unspecified; I10 Essential (primary) hypertension; I73.9 Peripheral vascular disease, unspecified; F41.9 Anxiety disorder, unspecified; F32.9 Major depressive disorder, single episode, unspecified; K21.9 Gastro-esophageal reflux disease without esophagitis; F03.90 Unspecified dementia, unspecified severity, without behavioral disturbance, psychotic disturbance, mood disturbance, and anxiety; E03.9 Hypothyroidism, unspecified; M43.6 Torticollis; G89.29 Other chronic pain; M54.2 Cervicalgia; F17.200 Nicotine dependence, unspecified, uncomplicated; R13.10 Dysphagia, unspecified; Z79.899 Other long term (current) drug therapy; Z98.890 Other specified postprocedural states; Z86.73 Personal history of transient ischemic attack (TIA), and cerebral infarction without residual deficits; Z90.49 Acquired absence of other specified parts of digestive tract; Z82.49 Family history of ischemic heart disease and other diseases of the circulatory system
CPT/HCPCS: 93005; 99285; 36415 ×2; 84443; 85025; 85610; 85730; 80048; 81001; 84484; 80061; 93880; 70551; 71010; 70450; 93010; 97162; G0378 ×4; A9270 ×17; J3490 ×3; G8978; G8979; G8980

== ENCOUNTER 2017-05-18 17:41 | Emergency (ER) | payer MEDICARE, MEDICAID ==
[2017-05-18] MEDS ORDERED: ACETAMINOPHEN 325 MG TABLET PO ONE (19:00)
--- NOTE | 2017-05-18 19:01 | ER Document Report ---
ED Hip Pain/Injury - General Chief Complaint: Hip Pain Stated Complaint: RIGHT HIP PAIN Time Seen by Provider: 05/18/17 18:49 Mode of Arrival: Medic Information source: Patient Notes: 72-year-old female presents to ED for complaint of right iliac pain bilaterally worse on the right. 2 days. She denies any fall or trauma. She does have a history of arthritis. She states she has had pain in this area in the past but not for a long time. TRAVEL OUTSIDE OF THE [place] IN LAST 30 DAYS: No - HPI Patient complains to provider of: Pain, Other - Bilateral iliac worse on the right Occurred: Other - 2 days Onset/Duration: Gradual, Persistent Quality of pain: Sharp Severity: Severe Pain Level: 5 Context: No trauma Symptoms prior to fall: None Symptoms since fall: None Skin Color: Normal Rotation of extremity: None Pain with palpation of the pelvis: Yes - Related Data Allergies/Adverse Reactions: ampicillin [Ampicillin] Allergy (Mild, Verified 05/18/17 18:00) rash Past Medical History - General Information source: Patient - Social History Smoking Status: Current Every Day Smoker Cigarette use (# per day): Yes - 1/2 ppd Chew tobacco use (# tins/day): No Smoking Education Provided: Yes - Less than 2 minute Frequency of alcohol use: Social Drug Abuse: None Lives with: Family Family History: CAD, CVA, Hyperlipidemia, Hypertension Patient has suicidal ideation: No Patient has homicidal ideation: No - Past Medical History Cardiac Medical History: Reports: Hx Hypercholesterolemia, Hx Hypertension, Hx Peripheral Vascular Disease Pulmonary Medical History: Reports: None EENT Medical History: Reports: None Neurological Medical History: Reports: Hx Cerebrovascular Accident Endocrine Medical History: Reports: Hx Hypothyroidism Renal/ Medical History: Reports: None Malignancy Medical History: Reports: None GI Medical History: Reports: Hx Gastroesophageal Reflux Disease, Hx Hiatal Hernia, Hx Irritable Bowel, Hx Ulcer Musculoskeltal Medical History: Reports Hx Arthritis Skin Medical History: Reports None Psychiatric Medical History: Reports: Hx Dementia, Hx Depression Traumatic Medical History: Reports: None Infectious Medical History: Reports: None Past Surgical History: Reports: Hx Appendectomy, Hx Carotid Endarterectomy, Hx Cholecystectomy, Hx Hysterectomy, Hx Tonsillectomy - Immunizations Immunizations up to date: Yes Hx Diphtheria, Pertussis, Tetanus Vaccination: Yes Hx Pneumococcal Vaccination: 12/01/12 Review of Systems - Review of Systems Constitutional: No symptoms reported EENT: No symptoms reported Cardiovascular: No symptoms reported Respiratory: No symptoms reported Gastrointestinal: No symptoms reported Genitourinary: No symptoms reported Female Genitourinary: No symptoms reported Musculoskeletal: Other - bilateral iliac pain worse on the right Skin: No symptoms reported Hematologic/Lymphatic: No symptoms reported Neurological/Psychological: No symptoms reported -: Yes All other systems reviewed and negative Physical Exam - Vital signs Vitals: Temp Pulse Resp BP Pulse Ox 99.1 F 79 18 144/79 H 98 05/18/17 17:57 05/18/17 17:57 05/18/17 17:57 05/18/17 17:57 05/18/17 17:57 Interpretation: Normal - General General appearance: Appears well, Alert - HEENT Head: Normocephalic, Atraumatic Eyes: Normal Pupils: PERRL - Respiratory Respiratory status: No respiratory distress Chest status: Nontender Breath sounds: Normal Chest palpation: Normal - Cardiovascular Rhythm: Regular Heart sounds: Normal auscultation Murmur: No - Abdominal Inspection: Normal Distension: No distension Bowel sounds: Normal Tenderness: Nontender Organomegaly: No organomegaly - Back Back: Normal, Tender - right iliac area of buttocks no bruising. No: Deformity/ step-off, CVA tenderness, Vertebra tenderness, Scars, Scoliosis, Wounds - Extremities General upper extremity: Normal inspection, Nontender, Normal color, Normal ROM , Normal temperature General lower extremity: Normal inspection, Nontender, Normal color, Normal ROM , Normal temperature, Normal weight bearing. No: Oliav's sign Hip: No: Tender - Neurological Neuro grossly intact: Yes Cognition: Normal Orientation: AAOx4 Mora Coma Scale Eye Opening: Spontaneous Mora Coma Scale Verbal: Oriented Kyaw Coma Scale Motor: Obeys Commands Kyaw Coma Scale Total: 15 Speech: Normal Motor strength normal: LUE, RUE, LLE, RLE Sensory: Normal - Psychological Associated symptoms: Normal affect, Normal mood - Skin Skin Temperature: Warm Skin Moisture: Dry Skin Color: Normal Course - Re-evaluation Re-evalutation: 05/18/17 21:40 Discussed x-rays with Dr. Rico, patient and family. Patient given copies of the x-ray reports. No fractures noted. Patient was instructed to follow-up with her primary doctor. Patient was treated with ibuprofen Tylenol and Lidoderm patch. Patient states she has Aspercreme and pain relief creams at home - Vital Signs Vital signs: Temp Pulse Resp BP Pulse Ox 98.0 F 64 16 153/85 H 98 05/18/17 20:44 05/18/17 20:44 05/18/17 20:44 05/18/17 20:44 05/18/17 20:44 - Diagnostic Test Radiology reviewed: Image reviewed, Reports reviewed Discharge - Discharge Clinical Impression: right iliac pain Condition: Stable Disposition: HOME, SELF-CARE Instructions: Use of [id number] Ibuprofen ([facility]) Additional Instructions: You were seen today for pain in your right buttocks. There is no breaks in your iliac. You hip is negative for any fractures. Arthritis Your symptoms are due to arthritis. Arthritis is an inflammation of the joints. There are many types -- osteoarthritis (due to "wear and tear"), auto- immmune arthritis (such as rheumatoid, lupus, Jj's, and others), and crystal -induced arthritis (such as gout and pseudogout). The physician's examination, combined with laboratory tests, will determine the cause of your arthritis. All types of arthritis are treated with antiinflammatory medications. Other medication may be required for special types of arthritis, or if your problem does not respond to the antiinflammatory medicine. Local warmth may be helpful. Move the involved joints through the full range of motion daily. Mild exercise is usually still possible for most persons with arthritis (ask your physician). Swimming provides good exercise without damaging the joints. Contact the physician if you are worsening in any way. USE OF TYLENOL (ACETAMINOPHEN): Acetaminophen may be taken for pain relief or fever control. It's much safer than aspirin, offering a wider range of "safe" dosages. It is safe during . Some brand names are Tylenol, Panadol, Datril, Anacin 3, Tempra, and Liquiprin. Acetaminophen can be repeated every four hours. The following are maximum recommended dosages: WEIGHT Dose Drops Elixir Chewable( 80mg) (LBS.) drprs=droppers tsp=teaspoon 6 40 mg 0.4 ml (1/2) 6-11 80 mg 0.8 ml (full) tsp 1 tab 12-16 120 mg 1 1/2 drprs 3/4 tsp 1 1/2 tabs 17-23 160 mg 2 drprs 1 tsp 2 tabs 24-30 240 mg 3 drprs 1 1/2 tsp 3 tabs 30-35 320 mg 2 tsp 4 tabs 36-41 360 mg 2 1/4 tsp 4 1/2 tabs 42-47 400 mg 2 1/2 tsp 5 tabs 48-53 480 mg 3 tsp 6 tabs 54-59 520 mg 3 1/4 tsp 6 1/2 tabs 60-64 560 mg 3 1/2 tsp 7 tabs 65-70 600 mg 3 3/4 tsp 7 1/2 tabs 71-76 640 mg 4 tsp 8 tabs 77-82 720 mg 4 1/2 tsp 9 tabs 83-88 800 mg 5 tsp 10 tabs >89 pounds or adults 650 mg to 900 mg Acetaminophen can be repeated every four hours. Maximum dose not to exceed 4000 mg a day. These maximum recommended dosages are slightly higher than the dosages written on the product container, but these dosages are very safe and below the toxic dosage for acetaminophen. ICE PACKS: Apply ice packs frequently against the painful area. Many different schedules are recommended, such as "20 minutes on, 20 minutes off" or "one hour ice, two hours rest." If you need to work, you may need to go longer between ice treatments. You should plan to have the area ice packed AT LEAST one fourth of the time. The ice should be applied over the wrap, tape, or splint, or over a layer of cloth -- not directly against the skin. Some ice bags have a built-in cloth and can be put directly on the skin. WARM PACKS: After approximately two days, apply gentle heat (such as a heating pad or hot water bottle) for about 20 to 30 minutes about every two hours -- at least four times daily. Warmth and elevation will help you make a more rapid recovery , and will ease the pain considerably. Do not use HOT heat, and never apply heat for longer than 30 minutes. The continuous heat can invisibly damage skin and muscles -- even when no burn is seen on the surface. Damaged muscles can make you MORE sore. FOLLOW-UP CARE: Call your primary doctor in the morning and schedule a follow- up appointment for this pain. Use the Aspercreme and lidocaine patches as we discussed. Use heat or cold whichever helps her pain. If you have been referred to a physician for follow-up care, call the physician s office for an appointment as you were instructed or within the next two days. If you experience worsening or a significant change in your symptoms, notify the physician immediately or return to the Emergency Department at any time for re-evaluation. Forms: Elevated Blood Pressure Referrals: ELLY CARRIZALES MD [Primary Care Provider] - Follow up tomorrow
--- NOTE | 2017-05-18 19:32 | RADIOLOGY REPORT (SQ) ---
EXAM DESCRIPTION: PELVIS AP COMPLETED DATE/TIME: 05/18/2017 7:23 pm REASON FOR STUDY: pain in right iliac COMPARISON: None. NUMBER OF VIEWS: One view TECHNIQUE: AP Pelvis LIMITATIONS: None. FINDINGS: MINERALIZATION: Normal. HIPS: No acute fracture or dislocation. No worrisome bone lesions. PELVIS AND SACRUM: No acute fracture or dislocation. No worrisome bone lesions. PUBIS AND ISCHIUM: No acute fracture. LOWER LUMBAR SPINE: No significant findings as visualized. SOFT TISSUES: No findings. OTHER: No other significant finding. IMPRESSION: NEGATIVE STUDY OF THE PELVIS. TECHNICAL DOCUMENTATION: JOB ID: [id number] [employer]- All Rights Reserved
[2017-05-18] MEDS ORDERED: LIDOCAINE 5% (700 MG) TRANSDERMAL ADH..PATCH TP ONE (20:27)
[2017-05-18] MEDS ORDERED: IBUPROFEN 600 MG TABLET PO ONE (20:27)
[2017-05-18 20:46] VITALS: BP 153/85
== END 2017-05-18 20:40 | disposition home or self-care (01) ==
LOC: ER 17:41
DX: M53.3 Sacrococcygeal disorders, not elsewhere classified (principal); M25.561 Pain in right knee; F17.210 Nicotine dependence, cigarettes, uncomplicated
CPT/HCPCS: 99283; 72170; A9270 ×2

== ENCOUNTER 2017-06-12 11:21 | Observation (INO) | payer MEDICARE, MEDICAID ==
--- NOTE | 2017-06-12 11:43 | ER Document Report ---
ED Medical Screen (RME) - General Chief Complaint: S/S of Possible Stroke Stated Complaint: ALTERED MENTAL STATUS Time Seen by Provider: 06/12/17 11:38 Mode of Arrival: Wheelchair Information source: Patient TRAVEL OUTSIDE OF THE [place] IN LAST 30 DAYS: No - HPI Patient complains to provider of: Confusion, speech difficulty Notes: 06/12/17 11:42 Patient is a 72-year-old female with a history of previous stroke/TIA, presenting to the emergency room for 2-3 day history of worsening generalized weakness, with difficulty with speech and tingling sensation in the right arm - Related Data Allergies/Adverse Reactions: ampicillin [Ampicillin] Allergy (Mild, Verified 06/12/17 11:28) rash Past Medical History - Past Medical History Cardiac Medical History: Reports: Hx Hypercholesterolemia, Hx Hypertension, Hx Peripheral Vascular Disease Denies: Hx Atrial Fibrillation, Hx Congestive Heart Failure, Hx Coronary Artery Disease, Hx Heart Attack, Hx Heart Murmur Pulmonary Medical History: Denies: Hx Tuberculosis Neurological Medical History: Reports: Hx Cerebrovascular Accident. Denies: Hx Seizures Endocrine Medical History: Reports: Hx Hypothyroidism. Denies: Hx Graves' Disease, Hx Hyperthyroidism Renal/ Medical History: Denies: Hx End Stage Renal Disease, Hx Kidney Stones, Hx Peritoneal Dialysis GI Medical History: Reports: Hx Gastroesophageal Reflux Disease, Hx Hiatal Hernia, Hx Irritable Bowel, Hx Ulcer. Denies: Hx Crohn's Disease, Hx Liver Failure Musculoskeltal Medical History: Reports Hx Arthritis, Denies Hx Fibromyalgia, Denies Hx Multiple Sclerosis, Denies Hx Muscular Dystrophy Psychiatric Medical History: Reports: Hx Dementia, Hx Depression Denies: Hx Bipolar Disorder, Hx Post Traumatic Stress Disorder, Hx Schizophrenia Traumatic Medical History: Denies: Hx Fractures Past Surgical History: Reports: Hx Appendectomy, Hx Carotid Endarterectomy, Hx Cholecystectomy, Hx Hysterectomy, Hx Tonsillectomy. Denies: Hx Bowel Surgery, Hx Section, Hx Colostomy, Hx Coronary Artery Bypass Graft, Hx Gastric Bypass Surgery, Hx Herniorrhaphy, Hx Mastectomy, Hx Pacemaker, Hx Tubal Ligation - Immunizations Immunizations up to date: Yes Hx Diphtheria, Pertussis, Tetanus Vaccination: Yes Physical Exam - Vital signs Vitals: Temp Pulse Resp BP Pulse Ox 99 F 84 20 115/64 95 06/12/17 11:28 06/12/17 11:28 06/12/17 11:28 06/12/17 11:28 06/12/17 11:28 Course - Vital Signs Vital signs: Temp Pulse Resp BP Pulse Ox 99 F 84 20 115/64 95 06/12/17 11:28 06/12/17 11:28 06/12/17 11:28 06/12/17 11:28 06/12/17 11:28
--- NOTE | 2017-06-12 12:30 | RADIOLOGY REPORT (SQ) ---
EXAM DESCRIPTION: CT HEAD WITHOUT COMPLETED DATE/TIME: 06/12/2017 12:02 pm REASON FOR STUDY: speech impairment COMPARISON: Carotid Doppler 04/19/2017 MRI brain 04/19/2017 CT brain 04/18/2017, 10/15/2008, 09/15/2008 TECHNIQUE: Axial images acquired through the brain without intravenous contrast. Images reviewed wi th bone, brain and subdural windows. Images stored on PACS. All CT scanners at this facility use dose modulation, iterative reconstruction, and/or weight based d osing when appropriate to reduce radiation dose to as low as reasonably achievable (ALARA). [facility]: Dose Right [facility]: CareDose [facility]: Dose Right [facility]: Teradose 4D [facility]: Smart Opax RADIATION DOSE: Up-to-date CT equipment and radiation dose reduction techniques were employed. CTDIv ol: 64.6 mGy. DLP: 1163 mGy-cm. mGy. LIMITATIONS: None. FINDINGS: VENTRICLES: Normal size and contour. CEREBRUM: No masses. No acute hemorrhage. No midline shift. No evidence for acute infarction. Stab le chronic white matter disease in the bifrontal and biparietal regions. CEREBELLUM: Old right cerebellar hemisphere infarct. No acute ischemic change hemorrhage or midline posterior fossa shift. EXTRAAXIAL SPACES: No fluid collections. No masses. ORBITS AND GLOBE: No intra- or extraconal masses. Normal contour of globe without masses. CALVARIUM: No fracture. PARANASAL SINUSES: No fluid or mucosal thickening. SOFT TISSUES: No mass or hematoma. OTHER: No other significant finding. IMPRESSION: No CT evidence of acute intracranial changes. Stable bifrontal and biparietal chronic white matter disease with old right cerebellar hemisphere inf arct. EVIDENCE OF ACUTE STROKE: NO. COMMENT: Quality ID # [id number]: Final reports with documentation of one or more dose reduction techniques (e.g., Automated exposure control, adjustment of the mA and/or kV according to patient size, use of iterative reconstruction technique) TECHNICAL DOCUMENTATION: JOB ID: [id number]- All Rights Reserved
--- NOTE | 2017-06-12 12:37 | RADIOLOGY REPORT (SQ) ---
EXAM DESCRIPTION: CHEST SINGLE VIEW COMPLETED DATE/TIME: 06/12/2017 12:26 pm REASON FOR STUDY: speech impairment COMPARISON: Chest films 01/18/2012, 01/19/2012, 04/18/2017 EXAM PARAMETERS: NUMBER OF VIEWS: One view. TECHNIQUE: Single frontal radiographic view of the chest acquired. RADIATION DOSE: NA LIMITATIONS: None. FINDINGS: LUNGS AND PLEURA: No opacities, masses or pneumothorax. No pleural effusion. MEDIASTINUM AND HILAR STRUCTURES: No masses. Contour normal. HEART AND VASCULAR STRUCTURES: Heart normal in size. Normal vasculature. BONES: No acute findings. HARDWARE: Surgical clips right and left neck likely post thyroid surgery OTHER: No other significant finding. IMPRESSION: NO ACUTE RADIOGRAPHIC FINDING IN THE CHEST. TECHNICAL DOCUMENTATION: JOB ID: [id number]
[2017-06-12 12:50] LABS: PROTHROMBIN TIME 12.8 SEC (11.4-15.4)
[2017-06-12 12:51] LABS: ABSOLUTE EOSINOPHILS # (AUTO) 0.1 10^3/uL (0.0-0.6); ABSOLUTE LYMPHOCYTES (AUTO) 3.7 10^3/uL (0.5-4.7); ABSOLUTE MONOCYTES (AUTO) 0.7 10^3/uL (0.1-1.4); BASOPHILS % (AUTO) 0.4 % (0-2); EOSINOPHILS % (AUTO) 0.6 % (0-6); HEMATOCRIT 36.5 % (36.0-47.0); HEMOGLOBIN 12.8 g/dL (12.0-15.5); HGB HCT DIFFERENCE 1.9; MEAN CORPUSCULAR HEMOGLOBIN 31.3 pg (27.0-33.4); MEAN CORPUSCULAR HGB CONC 35.1 g/dL (32.0-36.0); MEAN CORPUSCULAR VOLUME 89 fl (80-97); MONOCYTES % (AUTO) 7.2 % (3-13); PARTIAL THROMBOPLASTIN TIME 26.8 SEC (23.5-35.8); RED CELL DISTRIBUTION WIDTH 13.9 % (11.5-14.0); SEGMENTED NEUTROPHILS % (AUTO) 52.8 % (42-78); WHITE BLOOD COUNT 9.5 10^3/uL (4.0-10.5)
--- NOTE | 2017-06-12 13:02 | EKG REPORT ---
SEVERITY:- NORMAL ECG - SINUS RHYTHM : Confirmed by: Catina Grady 12-Jun-2017 13:01:56
[2017-06-12 13:07] LABS: ALANINE AMINOTRANSFERASE 25 U/L (9-52); ALBUMIN 3.8 g/dL (3.5-5.0); ALKALINE PHOSPHATASE 94 U/L (38-126); ANION GAP 9 (5-19); ASPARTATE AMINO TRANSFERASE 18 U/L (14-36); BILIRUBIN,DIRECT 0.4 mg/dL (0.0-0.4); BILIRUBIN,TOTAL 0.4 mg/dL (0.2-1.3); BLOOD UREA NITROGEN 15 mg/dL (7-20); CARBON DIOXIDE 29 mmol/L (22-30); CHLORIDE 102 mmol/L (98-107); CREATINE KINASE 46 U/L (30-135); CREATININE RESULT 0.96 mg/dL (0.52-1.25); GLUCOSE 78 mg/dL (75-110); SODIUM 139.8 mmol/L (137-145); TOTAL PROTEIN 6.5 g/dL (6.3-8.2)
--- NOTE | 2017-06-12 13:17 | ER Document Report ---
ED General - General Chief Complaint: S/S of Possible Stroke Stated Complaint: ALTERED MENTAL STATUS Time Seen by Provider: 06/12/17 11:38 Mode of Arrival: Wheelchair Information source: Patient Notes: 72-year-old female history of CVA TIAs presents with family with concerns of slurred speech confusion. Patient is alert oriented to person place and time however family notes that she is not acting appropriately. Patient admits to mild headache, unsure of her gait TRAVEL OUTSIDE OF THE [place] IN LAST 30 DAYS: No - HPI Onset: Yesterday Onset/Duration: Sudden - Related Data Allergies/Adverse Reactions: ampicillin [Ampicillin] Allergy (Mild, Verified 06/12/17 11:28) rash Home Medications: Current Home Medications Alprazolam [Xanax 0.25 mg Tablet] 0.25 mg PO DAILY 06/12/17 [History] Aspirin/Dipyridamole [Aggrenox 25 mg-200 mg Capsule] 1 each PO DAILY 06/12/17 [ History] Atorvastatin Calcium [Lipitor 80 mg Tablet] 80 mg PO QHS 06/12/17 [History] Cholecalciferol (Vitamin D3) [Vitamin D3] 2,000 unit PO DAILY 06/12/17 [History] Levothyroxine Sodium [Synthroid 0.1 mg Tablet] 0.1 mg PO DAILY 06/12/17 [History ] Memantine HCl [Namenda Xr] 28 mg PO DAILY 06/12/17 [History] Metoprolol Succinate [Toprol Xl 50 mg Tab.sr] 50 mg PO Q12 06/12/17 [History] Omeprazole 40 mg PO QAM 06/12/17 [History] Quetiapine Fumarate [Seroquel] 300 mg PO DAILY 06/12/17 [History] Past Medical History - General Information source: Patient - Social History Smoking Status: Current Every Day Smoker Chew tobacco use (# tins/day): No Frequency of alcohol use: Rare Drug Abuse: None, Other Family History: CAD, CVA, Hyperlipidemia, Hypertension Patient has suicidal ideation: No Patient has homicidal ideation: No - Past Medical History Cardiac Medical History: Reports: Hx Hypercholesterolemia, Hx Hypertension, Hx Peripheral Vascular Disease Denies: Hx Atrial Fibrillation, Hx Congestive Heart Failure, Hx Coronary Artery Disease, Hx Heart Attack, Hx Heart Murmur Pulmonary Medical History: Denies: Hx Tuberculosis Neurological Medical History: Reports: Hx Cerebrovascular Accident. Denies: Hx Seizures Endocrine Medical History: Reports: Hx Hypothyroidism. Denies: Hx Graves' Disease, Hx Hyperthyroidism Renal/ Medical History: Denies: Hx End Stage Renal Disease, Hx Kidney Stones, Hx Peritoneal Dialysis GI Medical History: Reports: Hx Gastroesophageal Reflux Disease, Hx Hiatal Hernia, Hx Irritable Bowel, Hx Ulcer. Denies: Hx Crohn's Disease, Hx Liver Failure Musculoskeltal Medical History: Reports Hx Arthritis, Denies Hx Fibromyalgia, Denies Hx Multiple Sclerosis, Denies Hx Muscular Dystrophy Psychiatric Medical History: Reports: Hx Dementia, Hx Depression Denies: Hx Bipolar Disorder, Hx Post Traumatic Stress Disorder, Hx Schizophrenia Traumatic Medical History: Denies: Hx Fractures Past Surgical History: Reports: Hx Appendectomy, Hx Carotid Endarterectomy, Hx Cholecystectomy, Hx Hysterectomy, Hx Tonsillectomy. Denies: Hx Bowel Surgery, Hx Section, Hx Colostomy, Hx Coronary Artery Bypass Graft, Hx Gastric Bypass Surgery, Hx Herniorrhaphy, Hx Mastectomy, Hx Pacemaker, Hx Tubal Ligation - Immunizations Immunizations up to date: Yes Hx Diphtheria, Pertussis, Tetanus Vaccination: Yes Hx Pneumococcal Vaccination: 12/01/12 Review of Systems - Review of Systems Notes: REVIEW OF SYSTEMS: CONSTITUTIONAL : Denies fever, chills, or sweats. Denies recent illness. EENT: Denies eye, ear, throat, or mouth pain or symptoms. Denies nasal or sinus congestion or discharge. Denies throat, tongue, or mouth swelling or difficulty swallowing. CARDIOVASCULAR: Denies chest pain. Denies palpitations or racing or irregular heart beat. Denies ankle edema. RESPIRATORY: Denies cough, cold, or chest congestion. Denies shortness of breath, difficulty breathing, or wheezing. GASTROINTESTINAL: Denies abdominal pain or distention. Denies nausea, vomiting , or diarrhea. Denies blood in vomitus, stools, or per rectum. Denies black, tarry stools. Denies constipation. GENITOURINARY: Denies difficulty urinating, painful urination, burning, frequency, blood in urine, or discharge. FEMALE GENITOURINARY: Denies vaginal bleeding, heavy or abnormal periods, irregular periods. Denies vaginal discharge or odor. MUSCULOSKELETAL: Denies back or neck pain or stiffness. Denies joint pain or swelling. SKIN: Denies rash, lesions or sores. HEMATOLOGIC : Denies easy bruising or bleeding. LYMPHATIC: Denies swollen, enlarged glands. NEUROLOGICAL: Admits to slurred speech confusion PSYCHIATRIC: Denies anxiety or stress. Denies depression, suicidal ideation, or homicidal ideation. ALL OTHER SYSTEMS REVIEWED AND NEGATIVE. PHYSICAL EXAMINATION: GENERAL: Well-appearing, well-nourished and in no acute distress. HEAD: Atraumatic, normocephalic. EYES: Pupils equal round and reactive to light, extraocular movements intact, conjunctiva are normal. ENT: Nares patent, oropharynx clear without exudates. Moist mucous membranes. NECK: Normal range of motion, supple without lymphadenopathy LUNGS: Breath sounds clear to auscultation bilaterally and equal. No wheezes rales or rhonchi. HEART: Regular rate and rhythm without murmurs ABDOMEN: Soft, nontender, nondistended abdomen. No guarding, no rebound. No masses appreciated. Female : deferred Musculoskeletal: Normal range of motion, no pitting or edema. No cyanosis. NEUROLOGICAL: Cranial nerves grossly intact. Normal speech, normal gait. Normal sensory, motor exams PSYCH: Normal mood, normal affect. SKIN: Warm, Dry, normal turgor, no rashes or lesions noted. Dictation was performed using [employer] voice recognition software Physical Exam - Vital signs Vitals: Temp Pulse Resp BP Pulse Ox 99 F 84 20 115/64 95 06/12/17 11:28 06/12/17 11:28 06/12/17 11:28 06/12/17 11:28 06/12/17 11:28 Course - Re-evaluation Re-evalutation: 06/12/17 15:22 Patient does not meet TPA criteria as symptoms started yesterday 06/12/17 15:24 Patient's presentation is quite benign, she has full strength her gait is a bit off balance overall she looks quite well, given history of previous CVA and TIA I will observe her overnight to rule out any life-threatening issues - Vital Signs Vital signs: Temp Pulse Resp BP Pulse Ox 99 F 72 17 135/72 H 100 06/12/17 11:28 06/12/17 14:28 06/12/17 14:28 06/12/17 14:28 06/12/17 14:28 - Laboratory Result Diagrams: 06/12/17 12:32 06/12/17 12:32 Laboratory results interpreted by me: 06/12/17 06/12/17 12:32 12:32 Est GFR (Non-Af Amer) 57 L TSH 0.02 L - Diagnostic Test Radiology reviewed: Image reviewed, Reports reviewed - EKG Interpretation by Me EKG shows normal: Sinus rhythm, Strong, Intervals, QRS Complexes Discharge - Discharge Clinical Impression: Expressive aphasia, Confusion TIA (transient ischemic attack) Qualifiers: Transient cerebral ischemia type: unspecified Qualified Code(s): G45.9 - Transient cerebral ischemic attack, unspecified Condition: Stable Disposition: ADMITTED INPATIENT Admitting Provider: Rizvi [facility] Admitted: [facility]
[2017-06-12 13:19] LABS: CREATINE KINASE MB 0.89 ng/mL (<4.55)
[2017-06-12 13:23] LABS: TROPONIN I < 0.012 ng/mL
[2017-06-12 13:50] LABS: FREE T3 4.2 pg/mL (2.77-5.27)
[2017-06-12 14:03] LABS: THYROID STIMULATING HORMONE 0.02 uIU/mL (0.47-4.68)
[2017-06-12 14:41] LABS: APPEARANCE,URINE SLIGHTLY-CLOUDY; BILIRUBIN,URINE NEGATIVE (NEGATIVE); GLUCOSE, URINE NEGATIVE (NEGATIVE); KETONES,URINE NEGATIVE (NEGATIVE); LEUKOCYTE ESTERASE,URINE NEGATIVE (NEGATIVE); NITRITE,URINE NEGATIVE (NEGATIVE); PROTEIN,URINE NEGATIVE (NEGATIVE); URINE SPECIFIC GRAVITY 1.004; UROBILINOGEN,URINE NEGATIVE mg/dL (<2.0)
[2017-06-12] MEDS ORDERED: ACETAMINOPHEN 325 MG TABLET PO ONE (15:21)
[2017-06-12] MEDS ORDERED: ASPIRIN 325 MG TABLET PO ONE (15:21)
[2017-06-12] MEDS ORDERED: ASPIRIN/DIPYRIDAMOLE 25-200 MG 1 CAP.SR CPMP.12HR PO SCH (16:15)
[2017-06-12] MEDS ORDERED: (PENDING PHARMACY ID) (Quetiapine Fumarate [Seroquel] 300 MG) PO SCH (16:15)
[2017-06-12] MEDS ORDERED: (PENDING PHARMACY ID) (Cholecalciferol (Vitamin D3) [Vitamin D3] 2,000 UNIT) PO SCH (16:15)
[2017-06-12] MEDS ORDERED: (PENDING PHARMACY ID) (Memantine Hcl [Namenda Xr] 28 MG) PO SCH (16:15)
[2017-06-12 17:14] LABS: HEMATOCRIT 38.7 % (36.0-47.0); HEMOGLOBIN 13.2 g/dL (12.0-15.5); HGB HCT DIFFERENCE 0.9; MEAN CORPUSCULAR HEMOGLOBIN 30.8 pg (27.0-33.4); MEAN CORPUSCULAR HGB CONC 34.1 g/dL (32.0-36.0); MEAN CORPUSCULAR VOLUME 91 fl (80-97); RED BLOOD COUNT 4.28 10^6/uL (3.72-5.28); RED CELL DISTRIBUTION WIDTH 13.8 % (11.5-14.0)
[2017-06-12 17:17] LABS: PROTHROMBIN TIME 13.3 SEC (11.4-15.4)
[2017-06-12 17:18] LABS: PARTIAL THROMBOPLASTIN TIME 27.4 SEC (23.5-35.8)
[2017-06-12] MEDS ORDERED: INFLUENZA ADLT QUAD (36MOS+) 2017-18 VAC 0.5 ML SYR IM PRN (17:18)
[2017-06-12 17:26] LABS: CREATINE KINASE 43 U/L (30-135); CREATININE RESULT 0.91 mg/dL (0.52-1.25)
[2017-06-12 17:39] LABS: CREATINE KINASE MB 0.98 ng/mL (<4.55)
[2017-06-12 17:43] LABS: TROPONIN I < 0.012 ng/mL
--- NOTE | 2017-06-12 18:02 | RADIOLOGY REPORT (SQ) ---
EXAM DESCRIPTION: MRI HEAD WITHOUT COMPLETED DATE/TIME: 06/12/2017 5:29 pm REASON FOR STUDY: cva COMPARISON: None. TECHNIQUE: Multiplanar imaging includes non-contrasted T1, T2, FLAIR, and diffusion with ADC map seq uences. Images stored on PACS. LIMITATIONS: None. FINDINGS: ANATOMY: No anomalies. Normal vascular flow voids. Pituitary fossa normal. CSF SPACES: Atrophy induced prominence of ventricles and CSF spaces. CEREBRUM: High signal intensity lesions scattered throughout the white matter on FLAIR imaging with d istribution suggesting micro-vascular ischemic changes. No evidence of hemorrhage, mass, or extraaxi al fluid collection. POSTERIOR FOSSA: No signal alteration. No hemorrhage. No edema, masses or mass effect. Internal julianne tory canals, cerebello-pontine angles, mastoids normal. DIFFUSION IMAGING: Negative for acute or sub-acute infarction. ORBITS: No masses. Globes normal. PARANASAL SINUSES: No fluid levels. Mucosa normal. OTHER: No other significant finding. IMPRESSION: No acute findings. ATROPHY AND CHRONIC MICRO-VASCULAR ISCHEMIC CHANGES. EVIDENCE OF ACUTE STROKE: NO. TECHNICAL DOCUMENTATION: JOB ID: [id number] [employer]- All Rights Reserved
[2017-06-12] MEDS: METOPROLOL SUCCINATE 50 MG TAB.SR.24H PO SCH (21:49)
[2017-06-12] MEDS: ATORVASTATIN CALCIUM 80 MG TABLET PO SCH (21:50)
[2017-06-13 01:10] LABS: CREATINE KINASE MB 0.77 ng/mL (<4.55)
[2017-06-13 01:13] LABS: TROPONIN I < 0.012 ng/mL
[2017-06-13 07:23] LABS: CREATINE KINASE MB 0.81 ng/mL (<4.55)
[2017-06-13 07:28] LABS: TROPONIN I < 0.012 ng/mL
[2017-06-13] MEDS ORDERED: QUETIAPINE FUMARATE 100 MG TABLET PO SCH (10:00)
[2017-06-13] MEDS: ENOXAPARIN SODIUM INJ 30 MG/0.3 ML DISP.SYRIN SUBCUT SCH (10:26)
[2017-06-13] MEDS: ALPRAZOLAM 0.25 MG TABLET PO SCH (10:26)
[2017-06-13] MEDS: LANSOPRAZOLE 30 MG TAB.RAP.DR PO SCH (10:26)
[2017-06-13] MEDS: ASPIRIN/DIPYRIDAMOLE 25-200 MG 1 CAP.SR CPMP.12HR PO SCH (10:27)
[2017-06-13] MEDS: CHOLECALCIFEROL (D3) 1,000 UNIT TABLET PO SCH (10:27)
[2017-06-13] MEDS: LEVOTHYROXINE SODIUM 0.1 MG TABLET PO SCH (10:28)
[2017-06-13] MEDS: METOPROLOL SUCCINATE 50 MG TAB.SR.24H PO SCH ×2 (10:28→22:37)
[2017-06-13] MEDS ORDERED: ACETAMINOPHEN 325 MG TABLET PO PRN (13:36)
--- NOTE | 2017-06-13 15:34 | PDOC H&P ---
History of Present Illness Admission Date/PCP: 06/12/17 13:42 ELLY CARRIZALES MD Patient complains of: Difficulty in speechAnd confusion History of Present Illness: TRUPTI GUTIERRES is a 72 year old female This is a 78-year-old female with a significant history of carotid artery disease And history of the chronic smoker and history of hypertension hyperlipidemia and history of the TIACame to the emergency departments by the daughter with the some slurred speech and some confusion'sAnd according to the daughter patient's not act currently In the emergency room so head CT was negative and all ER physicians evaluation was normal but patient was put on observations for 24 hours When I saw the patient in the floor patient is doing well alert awake and oriented 4 Patient speech is pretty much all normal Patient also see a vascular surgeon at [place] and suggest the following a couple of months for the left carotid artery disease and unable to do any surgery by point patient's continues to smoke Patient is also seeing Dr. Grady as outpatient and echocardiogram was done last month was all stable Patient otherwise denied any chest pain denied any shortness of breath Past Medical History Cardiac Medical History: Reports: Hyperlipidema, Hypertension, Peripheral Vascular Disease Denies: Atrial Fibrillation, Congestive Heart Failure, Coronary Artery Disease, Myocardial Infarction, Heart Murmur Pulmonary Medical History: Reports: Chronic Obstructive Pulmonary Disease (COPD) Denies: Tuberculosis Neurological Medical History: Denies: Seizures Endocrine Medical History: Reports: Hypothyroidism Denies: Hyperthyroidism Renal/ Medical History: Denies: End Stage Renal Disease GI Medical History: Reports: Gastroesophageal Reflux Disease, Hiatal Hernia Denies: Crohn's Disease Musculoskeltal Medical History: Reports: Arthritis Denies: Fibromyalgia Psychiatric Medical History: Reports: Dementia, Depression Denies: Bipolar Disorder, Post Traumatic Stress Disorder Past Surgical History Past Surgical History: Reports: Appendectomy, Carotid Endarterectomy, Cholecystectomy, Hysterectomy, Tonsillectomy Denies: Amputation, Section, Colostomy, Coronary Artery Bypass Graft , Gastric Bypass Surgery, Herniorrhaphy, Mastectomy, Pacemaker, Tubal Ligation Social History Smoking Status: Current Every Day Smoker Cigarettes Packs Per Day: 1 Last Time Smoked: 06/12/17 Frequency of Alcohol Use: None Hx Recreational Drug Use: No Drugs: None Hx Prescription Drug Abuse: No Family History Family History: Reviewed & Not Pertinent, CAD, CVA, Hyperlipidemia, Hypertension Parental Family History Reviewed: Yes Children Family History Reviewed: Yes Sibling(s) Family History Reviewed.: Yes Medication/Allergy Home Medications: Alprazolam [Xanax 0.25 mg Tablet] 0.25 mg PO DAILY 06/12/17 Aspirin/Dipyridamole [Aggrenox 25 mg-200 mg Capsule] 1 each PO DAILY 06/12/17 Atorvastatin Calcium [Lipitor 80 mg Tablet] 80 mg PO QHS 06/12/17 Cholecalciferol (Vitamin D3) [Vitamin D3] 2,000 unit PO DAILY 06/12/17 Levothyroxine Sodium [Synthroid 0.1 mg Tablet] 0.1 mg PO DAILY 06/12/17 Memantine HCl [Namenda Xr] 28 mg PO DAILY 06/12/17 Metoprolol Succinate [Toprol Xl 50 mg Tab.sr] 50 mg PO Q12 06/12/17 Omeprazole 40 mg PO QAM 06/12/17 Quetiapine Fumarate [Seroquel] 300 mg PO DAILY 06/12/17 Allergies/Adverse Reactions: ampicillin [Ampicillin] Allergy (Mild, Verified 06/12/17 11:28) rash Review of Systems Constitutional: ABSENT: chills, fever(s), headache(s), weight gain, weight loss Eyes: ABSENT: visual disturbances Ears: ABSENT: hearing changes Cardiovascular: ABSENT: chest pain, dyspnea on exertion, edema, orthropnea, palpitations Respiratory: ABSENT: cough, hemoptysis Gastrointestinal: ABSENT: abdominal pain, constipation, diarrhea, hematemesis, hematochezia, nausea, vomiting Genitourinary: ABSENT: dysuria, hematuria Musculoskeletal: ABSENT: joint swelling Integumentary: ABSENT: rash, wounds Neurological: ABSENT: abnormal gait, abnormal speech, confusion, dizziness, focal weakness, syncope Psychiatric: ABSENT: anxiety, depression, homidical ideation, suicidal ideation Endocrine: ABSENT: cold intolerance, heat intolerance, menstrual abnormalities, polydipsia, polyuria Hematologic/Lymphatic: ABSENT: easy bleeding, easy bruising, lymphadenopathy Physical Exam Vital Signs: Temp Pulse Resp BP Pulse Ox 98.6 F 59 L 16 151/83 H 97 06/13/17 11:42 06/13/17 11:42 06/13/17 11:42 06/13/17 11:42 06/13/17 11:42 Intake & Output 06/12/17 06/13/17 06/14/17 06:59 06:59 06:59 Intake Total 997 400 Output Total 250 Balance 747 400 Weight 46.1 kg General appearance: PRESENT: no acute distress, well-developed, well-nourished Head exam: PRESENT: atraumatic, normocephalic Eye exam: PRESENT: conjunctiva pink, EOMI, PERRLA. ABSENT: scleral icterus Ear exam: PRESENT: normal external ear exam Mouth exam: PRESENT: moist, tongue midline Neck exam: PRESENT: full ROM. ABSENT: carotid bruit, JVD, lymphadenopathy, thyromegaly Respiratory exam: PRESENT: clear to auscultation anitra Cardiovascular exam: PRESENT: RRR. ABSENT: diastolic murmur, rubs, systolic murmur Pulses: PRESENT: normal dorsalis pedis pul, +2 pedal pulses bilateral Vascular exam: PRESENT: normal capillary refill GI/Abdominal exam: PRESENT: normal bowel sounds, soft. ABSENT: distended, guarding, mass, organolmegaly, rebound, tenderness Rectal exam: PRESENT: deferred Extremities exam: ABSENT: pedal edema Neurological exam: PRESENT: alert, awake, oriented to person, oriented to place , oriented to time, oriented to situation, CN II-XII grossly intact, normal gait. ABSENT: motor sensory deficit Psychiatric exam: PRESENT: appropriate affect, normal mood. ABSENT: homicidal ideation, suicidal ideation Skin exam: PRESENT: dry, intact, warm. ABSENT: cyanosis, rash Results Laboratory Results: 06/12/17 17:00 06/12/17 17:00 06/12/17 06/12/17 17:00 17:00 WBC 9.0 RBC 4.28 Hgb 13.2 Hct 38.7 MCV 91 MCH 30.8 MCHC 34.1 RDW 13.8 Plt Count 233 Creatinine 0.91 Est GFR ( Amer) > 60 Est GFR (Non-Af Amer) > 60 06/12/17 06/12/17 06/13/17 17:00 17:00 00:18 Creatine Kinase 43 45 CK-MB (CK-2) 0.98 Troponin I < 0.012 06/13/17 06/13/17 06/13/17 00:18 06:30 06:30 Creatine Kinase 32 CK-MB (CK-2) 0.77 0.81 Troponin I < 0.012 < 0.012 Impressions: Head MRI 06/12/17 00:00 IMPRESSION: No acute findings. ATROPHY AND CHRONIC MICRO-VASCULAR ISCHEMIC CHANGES. EVIDENCE OF ACUTE STROKE: NO. Chest X-Ray 06/12/17 11:41 IMPRESSION: NO ACUTE RADIOGRAPHIC FINDING IN THE CHEST. Head CT 06/12/17 11:41 IMPRESSION: No CT evidence of acute intracranial changes. 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 EVIDENCE OF ACUTE STROKE: NO. Assessment & Plan - Diagnosis (1) Expressive aphasia Is this a current diagnosis for this admission?: Yes Plan: I do not see any expressive aphasia at this point currently all resolved (2) TIA (transient ischemic attack) Qualifiers: Transient cerebral ischemia type: unspecified Qualified Code(s): G45.9 - Transient cerebral ischemic attack, unspecified Is this a current diagnosis for this admission?: Yes Plan: Patient CT head and MRI is all negative Continues to Aggrenox and Lipitor Discussed with the patient and the daughter about the smoking cessation (3) Anxiety and depression Is this a current diagnosis for this admission?: Yes Plan: Currently all stable (4) Carotid atherosclerosis Qualifiers: Laterality: left Qualified Code(s): I65.22 - Occlusion and stenosis of left carotid artery Is this a current diagnosis for this admission?: Yes Plan: Patient's currently follow with the vascular surgery at [place] and no need for any surgical intervention at this point continues to medical management and follow in July for further evaluations (5) Dementia Qualifiers: Dementia type: unspecified type Dementia behavioral disturbance: without behavioral disturbance Qualified Code(s): F03.90 - Unspecified dementia without behavioral disturbance Is this a current diagnosis for this admission?: Yes Plan: Continues Aricept and the Namenda (6) Dyslipidemia Is this a current diagnosis for this admission?: Yes Plan: Continues to Lipitor (7) Essential hypertension Is this a current diagnosis for this admission?: Yes Plan: Currently all stable (8) Gastroesophageal reflux disease Qualifiers: Esophagitis presence: without esophagitis Is this a current diagnosis for this admission?: Yes Plan: Continues to PPI (9) Hypothyroidism Qualifiers: Hypothyroidism type: unspecified Qualified Code(s): E03.9 - Hypothyroidism , unspecified Is this a current diagnosis for this admission?: Yes Plan: Recheck the TSH (10) Peripheral vascular disease Is this a current diagnosis for this admission?: Yes - Time Time Spent: 30 to 50 Minutes Medications reviewed and adjusted accordingly: Yes Anticipated discharge: Home Within: within 24 hours - Inpatient Certification Medical Necessity: Significant Comorbidiites Make Outpatient Treatment Too Risky , Need Close Monitoring Due to Risk of Patient Decompensation Post Hospital Care: D/C Wood Room Hand Documentation - Plan Summary Plan Summary: We will put the patient in the CVA protocol at the physical therapy speech therapy evaluations follow-up outpatients vascular surgery continues current medications Discussed with the patient and daughter about the all aggressive risk factor management for the strokeAnd also discussed about the smoking cessation
--- NOTE | 2017-06-13 17:57 | RADIOLOGY REPORT (SQ) ---
EXAM DESCRIPTION: MRA HEAD WITHOUT COMPLETED DATE/TIME: 06/13/2017 5:46 pm REASON FOR STUDY: stroke COMPARISON: None. TECHNIQUE: Axial 3-D szef-on-vuosdy acquisition imaging performed through the brain in the area of t he [place] of [place]. Images reformatted using 3-D MIPS. LIMITATIONS: None. FINDINGS: SOURCE IMAGES: No unexpected findings on source images. No large masses. 3-D MIP: No aneurysm. No occlusions. No significant stenosis. OTHER: No other significant finding. IMPRESSION: NORMAL MRA OF THE [place]. TECHNICAL DOCUMENTATION: JOB ID: [id number]- All Rights Reserved
--- NOTE | 2017-06-13 22:25 | XCELERA REPORT ---
[address] [address] Transthoracic Echocardiogram Report Name: TRUPTI GUTIERRES Age: 72 yrs Gender: Female : 1945 Patient Status: Inpatient Patient Location: [address] [place] [address] Study Date: 06/13/2017 08:51 AM Height: 59 in Weight: 101 lb BSA: 1.4 m2 Procedure: A complete two-dimensional transthoracic echocardiogram was performed (2D, M-mode, spectral and color flow Doppler). The study was technically difficult with many images being suboptimal in quality. Reason For Study: dax Ordering Physician: ELLY CARRIZALES Performed By: Martha Yancey Interpretation Summary The left ventricular ejection fraction is normal. Doppler measurements suggest pseudonormalized left ventricular relaxation, which is associated with grade II/IV or mild to moderate diastolic dysfunction There is borderline concentric left ventricular hypertrophy. The left ventricle is grossly normal size. Wall motion cannot be accurately commented on, but no definite regional wall motion abnormalities noted. The right ventricular systolic function is normal. There is a mild amount of mitral regurgitation There is a mild amount of aortic regurgitation There is a trace to mild amount of tricuspid regurgitation There is mild pulmonary hypertension by echo Right ventricular systolic pressure is estimated to be elevated at 30- 40mmHg. There is no pericardial effusion. MMode/2D Measurements & Calculations RVDd: 2.3 cm LVIDd: 2.7 cm FS: 24.1 % Ao root diam: 2.9 cm IVSd: 1.0 cm LVIDs: 2.1 cm EDV(Teich): 27.9 ml LVPWd: 1.00 cmESV(Teich): 14.0 ml Ao root area: 6.7 cm2 EF(Teich): 49.8 % LA dimension: 2.8 cm LVOT diam: 1.8 cm LVOT area: 2.4 cm2 Doppler Measurements & Calculations MV E max kady: MV P1/2t max kady: Ao V2 max: AI max kady: 80.0 cm/sec 80.5 cm/sec 165.0 cm/sec 454.0 cm/sec MV A max kady: MV P1/2t: 59.2 msec Ao max PG: AI max P.5 cm/sec MVA(P1/2t): 3.7 cm2 10.9 mmHg 82.4 mmHg MV E/A: 1.0 MV dec slope: VAHE(V,D): 1.3 cm2 AI dec slope: 398.0 cm/sec2 154.0 cm/sec2 AI P1/2t: 863.4 msec LV V1 max PG: PA V2 max: TR max kady: 3.3 mmHg 79.5 cm/sec 276.3 cm/sec LV V1 max: PA max P.5 mmHg TR max P.2 cm/sec 30.5 mmHg Left Ventricle The left ventricle is grossly normal size. There is borderline concentric left ventricular hypertrophy. The left ventricular ejection fraction is normal. Doppler measurements suggest pseudonormalized left ventricular relaxation, which is associated with grade II/IV or mild to moderate diastolic dysfunction. Wall motion cannot be accurately commented on, but no definite regional wall motion abnormalities noted. Right Ventricle The right ventricle is grossly normal size. The right ventricular systolic function is normal. Atria The right atrium is normal in size. The left atrial size is normal. Interarterial septum not well visualized and not well dopplered. Cannot comment on ASD/PFO presence. Mitral Valve The mitral valve leaflets are sclerotic, but show no functional abnormalities. There is no mitral valve stenosis. There is a mild amount of mitral regurgitation. Aortic Valve The aortic valve is not well visualized secondary to technical limitations. There is no aortic valve stenosis. There is a mild amount of aortic regurgitation. Tricuspid Valve The tricuspid valve is not well visualized secondary to technical limitations. There is no tricuspid stenosis. There is a trace to mild amount of tricuspid regurgitation. There is mild pulmonary hypertension by echo. Right ventricular systolic pressure is estimated to be elevated at 30-40mmHg. Pulmonic Valve The pulmonic valve is not well visualized. Great Vessels The aortic root is not well visualized. The inferior vena cava was not well visualized. Effusions There is no pericardial effusion. : ELLY CARRIZALES > Catina Grady
[2017-06-13] MEDS: ATORVASTATIN CALCIUM 80 MG TABLET PO SCH (22:37)
[2017-06-14 05:33] LABS: ABSOLUTE BASOPHILS # (AUTO) 0.1 10^3/uL (0.0-0.2); ABSOLUTE EOSINOPHILS # (AUTO) 0.1 10^3/uL (0.0-0.6); ABSOLUTE LYMPHOCYTES (AUTO) 3.9 10^3/uL (0.5-4.7); ABSOLUTE MONOCYTES (AUTO) 0.6 10^3/uL (0.1-1.4); ABSOLUTE NEUT (AUTO) 2.9 10^3/uL (1.7-8.2); EOSINOPHILS % (AUTO) 0.8 % (0-6); HEMOGLOBIN 11.9 g/dL (12.0-15.5); HGB HCT DIFFERENCE 1.7; LYMPHOCYTES % (AUTO) 51.8 % (13-45); MEAN CORPUSCULAR HEMOGLOBIN 31.5 pg (27.0-33.4); MEAN CORPUSCULAR VOLUME 90 fl (80-97); MONOCYTES % (AUTO) 7.8 % (3-13); RED BLOOD COUNT 3.79 10^6/uL (3.72-5.28); SEGMENTED NEUTROPHILS % (AUTO) 38.6 % (42-78); WHITE BLOOD COUNT 7.6 10^3/uL (4.0-10.5)
[2017-06-14 05:58] LABS: ANION GAP 10 (5-19); BLOOD UREA NITROGEN 13 mg/dL (7-20); CALCIUM 9.2 mg/dL (8.4-10.2); CARBON DIOXIDE 25 mmol/L (22-30); CHLORIDE 106 mmol/L (98-107); CREATININE RESULT 0.71 mg/dL (0.52-1.25); GLUCOSE 96 mg/dL (75-110); SODIUM 141.4 mmol/L (137-145)
[2017-06-14] MEDS: METOPROLOL SUCCINATE 50 MG TAB.SR.24H PO SCH ×2 (06:33→23:02)
[2017-06-14] MEDS: ALPRAZOLAM 0.25 MG TABLET PO SCH (09:30)
[2017-06-14] MEDS: ENOXAPARIN SODIUM INJ 30 MG/0.3 ML DISP.SYRIN SUBCUT SCH (09:30)
[2017-06-14] MEDS: LANSOPRAZOLE 30 MG TAB.RAP.DR PO SCH (09:30)
[2017-06-14] MEDS: AMLODIPINE BESYLATE 2.5 MG TABLET PO SCH ×2 (09:30→23:00)
[2017-06-14] MEDS: ASPIRIN/DIPYRIDAMOLE 25-200 MG 1 CAP.SR CPMP.12HR PO SCH (09:32)
[2017-06-14] MEDS: CHOLECALCIFEROL (D3) 1,000 UNIT TABLET PO SCH (09:32)
[2017-06-14] MEDS: LEVOTHYROXINE SODIUM 0.1 MG TABLET PO SCH (09:32)
[2017-06-14] MEDS ORDERED: QUETIAPINE FUMARATE 100 MG TABLET PO SCH (10:00)
[2017-06-14] MEDS ORDERED: AMLODIPINE BESYLATE 5 MG TABLET PO SCH ×2 (10:00)
--- NOTE | 2017-06-14 13:23 | PDOC PROGRESS REPORT ---
Subjective Progress Note for:: 06/14/17 Subjective:: Patient is currently doing well. Patient's denied any chest pain denied any shortness of the breath.Patient's denied any weaknessPatient's MRA of the head was negatPatient have a some hallucination issues and psych consult was placed and discussed with the psych Suggest stop the Seroquel and stop the lorazepam and start the BuSpar and Depakote Patient's otherwise doing well walking the hallway without any problems Discussed with the daughter in the room regarding all the test reports and blood work Physical Exam Vital Signs: Temp Pulse Resp BP Pulse Ox 97.9 F 66 18 150/72 H 98 06/14/17 11:30 06/14/17 11:30 06/14/17 11:30 06/14/17 11:30 06/14/17 11:30 Intake & Output 06/13/17 06/14/17 06/15/17 06:59 06:59 06:59 Intake Total 997 1035 Output Total 250 Balance 747 1035 Weight 46.1 kg General appearance: PRESENT: no acute distress, well-developed, well-nourished Head exam: PRESENT: atraumatic, normocephalic Eye exam: PRESENT: conjunctiva pink, EOMI, PERRLA. ABSENT: scleral icterus Ear exam: PRESENT: normal external ear exam Mouth exam: PRESENT: moist, tongue midline Neck exam: PRESENT: full ROM. ABSENT: carotid bruit, JVD, lymphadenopathy, thyromegaly Respiratory exam: PRESENT: clear to auscultation anitra Cardiovascular exam: PRESENT: RRR. ABSENT: diastolic murmur, rubs, systolic murmur Pulses: PRESENT: normal dorsalis pedis pul, +2 pedal pulses bilateral Vascular exam: PRESENT: normal capillary refill GI/Abdominal exam: PRESENT: normal bowel sounds, soft. ABSENT: distended, guarding, mass, organolmegaly, rebound, tenderness Rectal exam: PRESENT: deferred Musculoskeletal exam: PRESENT: ambulatory Neurological exam: PRESENT: alert, awake, oriented to person, oriented to place , oriented to time, oriented to situation, reflexes normal, CN II-XII grossly intact, normal gait. ABSENT: motor sensory deficit Psychiatric exam: PRESENT: appropriate affect, normal mood. ABSENT: homicidal ideation, suicidal ideation Skin exam: PRESENT: dry, intact, warm. ABSENT: cyanosis, rash Results Laboratory Results: 06/14/17 05:10 06/14/17 05:10 06/14/17 06/14/17 05:10 05:10 WBC 7.6 RBC 3.79 Hgb 11.9 L Hct 34.0 L MCV 90 MCH 31.5 MCHC 35.0 RDW 14.0 Plt Count 198 Seg Neutrophils % 38.6 L Lymphocytes % 51.8 H Monocytes % 7.8 Eosinophils % 0.8 Basophils % 1.0 Absolute Neutrophils 2.9 Absolute Lymphocytes 3.9 Absolute Monocytes 0.6 Absolute Eosinophils 0.1 Absolute Basophils 0.1 Sodium 141.4 Potassium 4.0 Chloride 106 Carbon Dioxide 25 Anion Gap 10 BUN 13 Creatinine 0.71 Est GFR ( Amer) > 60 Est GFR (Non-Af Amer) > 60 Glucose 96 Calcium 9.2 06/12/17 14:20 Catheterized Urine Urine Culture - Final NO GROWTH 2 DAYS 06/12/17 06/12/17 06/13/17 17:00 17:00 00:18 Creatine Kinase 43 45 CK-MB (CK-2) 0.98 Troponin I < 0.012 06/13/17 06/13/17 06/13/17 00:18 06:30 06:30 Creatine Kinase 32 CK-MB (CK-2) 0.77 0.81 Troponin I < 0.012 < 0.012 Impressions: Head MRI 06/12/17 00:00 IMPRESSION: No acute findings. ATROPHY AND CHRONIC MICRO-VASCULAR ISCHEMIC CHANGES. EVIDENCE OF ACUTE STROKE: NO. Chest X-Ray 06/12/17 11:41 IMPRESSION: NO ACUTE RADIOGRAPHIC FINDING IN THE CHEST. Head CT 06/12/17 11:41 IMPRESSION: No CT evidence of acute intracranial changes. 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 EVIDENCE OF ACUTE STROKE: NO. Brain MRI with MRA 06/13/17 00:00 IMPRESSION: NORMAL MRA OF THE [place]. Assessment & Plan - Diagnosis (1) Expressive aphasia Is this a current diagnosis for this admission?: Yes Plan: I do not see any expressive aphasia at this point currently all resolved (2) TIA (transient ischemic attack) Qualifiers: Transient cerebral ischemia type: unspecified Qualified Code(s): G45.9 - Transient cerebral ischemic attack, unspecified Is this a current diagnosis for this admission?: Yes Plan: Patient CT head and MRI is all negative Continues to Aggrenox and Lipitor Discussed with the patient and the daughter about the smoking cessation (3) Anxiety and depression Is this a current diagnosis for this admission?: Yes Plan: Consult the psych (4) Carotid atherosclerosis Qualifiers: Laterality: left Qualified Code(s): I65.22 - Occlusion and stenosis of left carotid artery Is this a current diagnosis for this admission?: Yes Plan: Patient's currently follow with the vascular surgery at [place] and no need for any surgical intervention at this point continues to medical management and follow in July for further evaluations (5) Dementia Qualifiers: Dementia type: unspecified type Dementia behavioral disturbance: without behavioral disturbance Qualified Code(s): F03.90 - Unspecified dementia without behavioral disturbance Is this a current diagnosis for this admission?: Yes Plan: Continues Aricept and the Namenda (6) Dyslipidemia Is this a current diagnosis for this admission?: Yes Plan: Continues to Lipitor (7) Essential hypertension Is this a current diagnosis for this admission?: Yes Plan: Currently all stable (8) Gastroesophageal reflux disease Qualifiers: Esophagitis presence: without esophagitis Is this a current diagnosis for this admission?: Yes Plan: Continues to PPI (9) Hypothyroidism Qualifiers: Hypothyroidism type: unspecified Qualified Code(s): E03.9 - Hypothyroidism , unspecified Is this a current diagnosis for this admission?: Yes Plan: Recheck the TSH (10) Peripheral vascular disease Is this a current diagnosis for this admission?: Yes (11) Hallucination Is this a current diagnosis for this admission?: Yes Plan: As per discussed with the psych suggest to DC the Seroquel and DC the lorazepam and started on Depakote and BuSpar - Time Time Spent with patient: 15-24 minutes Medications reviewed and adjusted accordingly: Yes Anticipated discharge: Home Within: within 24 hours - Inpatient Certification Medical Necessity: Need Close Monitoring Due to Risk of Patient Decompensation 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
--- NOTE | 2017-06-14 14:05 | PSYCHOLOGICAL NOTE ---
Psych Note - Psych Note Psych Note: Patient is a 72 year old female who presented to the ED via family on 2016 for slurred speech and confusion. She was subsequently admitted for expressive aphasia, TIA, Anxiety and Depression, carotid atherosclerosis, dementia, dyslipidemia, essential hypertension, GERD, hypothyroidism, and peripheral vascular disease. A psychiatric consult was ordered due for hallucinations and speech. Conducted chart review on patient. She has a history of dementia and is prescribed Namenda which is used to treat moderate to severe dementia of the Alzheimer's type. Home medication list includes Xanax 0.25MG QD and Seroquel 300MG QD. She is being administered the Xanax 0.25MG QD and Seroquel 150MG QD here in the hospital. These medications cause concern as they have been known to cause and/or exacerbate confusion, aggression, and psychosis (hallucinations , delusions, paranoia) in elderly patients diagnoses with dementia. No UTI per labs. 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 The Head MRI 06/12/2017 noted atrophy induced prominence of ventricles and CSF spaces, as well as atrophy and chronic microvascular ischemic changes. This language suggests neurodegenerative processes and confirms dementia. 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 She has documented dementia and is prescribed Namenda, Head CT and MRI reflect neurodegenerative prrocesses as seen in dementia, and is prescribed medications that have been known to cause and/or exacerbate confusion, aggression, and psychosis ( hallucinations, delusions, paranoia) in elderly patients diagnoses with dementia. For this reason treating physicians are asked to consider NOT using benzodiazepines (Xanax, Klonopin, Valium, Ativan), antipsychotics (Haldol, Geodon, Zyprexa), some sleep aids (Ambien, Restoril, Seroquel), pain medications , and steroids. Consulted with Dr. Latif regarding the management and care of patient. Attending physiciam made watson of recommendations.
[2017-06-14] MEDS: DIVALPROEX SODIUM 250 MG TABLET.DR PO SCH (17:25)
[2017-06-14] MEDS: ATORVASTATIN CALCIUM 80 MG TABLET PO SCH (23:01)
[2017-06-14] MEDS: BUSPIRONE HCL 10 MG TABLET PO SCH (23:02)
[2017-06-15 08:26] VITALS: BP 142/79
--- NOTE | 2017-06-15 08:28 | PDOC DISCHARGE SUMMARY ---
General - Admit/Disc Date/PCP Admission Date/Primary Care Provider: 06/12/17 14:00 ELLY CARRIZALES MD Discharge Date: 06/15/17 - Discharge Diagnosis (1) Expressive aphasia Is this a current diagnosis for this admission?: Yes Summary: Currently all resolved (2) TIA (transient ischemic attack) Is this a current diagnosis for this admission?: Yes Summary: Continues Aggrenox (3) Anxiety and depression Is this a current diagnosis for this admission?: Yes Summary: Follow with the psych (4) Carotid atherosclerosis Is this a current diagnosis for this admission?: Yes Summary: Patient see outpatients vascular surgery at [place] (5) Dementia Is this a current diagnosis for this admission?: Yes Summary: Continues on Namenda with some worsening behavior and hallucinations (6) Dyslipidemia Is this a current diagnosis for this admission?: Yes Summary: Continues a statin (7) Essential hypertension Is this a current diagnosis for this admission?: Yes Summary: Continues the beta-jag and Norvasc (8) Gastroesophageal reflux disease Is this a current diagnosis for this admission?: Yes Summary: Currently all stable (9) Hypothyroidism Is this a current diagnosis for this admission?: Yes Summary: Continues to levothyroxine (10) Peripheral vascular disease Is this a current diagnosis for this admission?: Yes (11) Hallucination Is this a current diagnosis for this admission?: Yes Summary: Due to the worsening dementia psych consult was done and DC the Seroquel and Xanax - Additional Information Discharge Diet: Cardiac Discharge Activity: Activity As Tolerated Home Medications: Aspirin/Dipyridamole [Aggrenox 25 mg-200 mg Capsule] 1 each PO DAILY 06/12/17 Atorvastatin Calcium [Lipitor 80 mg Tablet] 80 mg PO QHS 06/12/17 Cholecalciferol (Vitamin D3) [Vitamin D3] 2,000 unit PO DAILY 06/12/17 Levothyroxine Sodium [Synthroid 0.1 mg Tablet] 0.1 mg PO DAILY 06/12/17 Memantine HCl [Namenda Xr] 28 mg PO DAILY 06/12/17 Metoprolol Succinate [Toprol Xl 50 mg Tab.sr] 50 mg PO Q12 06/12/17 Omeprazole 40 mg PO QAM 06/12/17 Amlodipine Besylate [Norvasc 5 mg Tablet] 2.5 mg PO BID #60 tablet 06/14/17 Buspirone HCl [Buspar 10 mg Tablet] 5 mg PO Q12 #60 tablet 06/15/17 Divalproex Sodium [Depakote] 250 mg PO BID #60 tablet. 06/15/17 History of Present Illness History of Present Illness: TRUPTI GUTIERRES is a 72 year old female This is a 78-year-old female with a significant history of carotid artery disease And history of the chronic smoker and history of hypertension hyperlipidemia and history of the TIACame to the emergency departments by the daughter with the some slurred speech and some confusion'sAnd according to the daughter patient's not act currently In the emergency room so head CT was negative and all ER physicians evaluation was normal but patient was put on observations for 24 hours When I saw the patient in the floor patient is doing well alert awake and oriented 4 Patient speech is pretty much all normal Patient also see a vascular surgeon at [place] and suggest the following a couple of months for the left carotid artery disease and unable to do any surgery by point patient's continues to smoke Patient is also seeing Dr. Grady as outpatient and echocardiogram was done last month was all stable Patient otherwise denied any chest pain denied any shortness of breath Hospital Course Hospital Course: Is a 72-year-old female presented to the emergency department with the not act properly patient initial workup was all negative patient's admitting for the possible TIA symptomsPatient had MRI was also negative and MRA was also negative Patient does not have any stroke signs or symptoms Patient still continues to smoke Patient also see a vascular surgeon in [place] and suggest no further surgical indication at this point and following in July Patient have underlying dementia with some worsening the behavior and hallucinations and a psych consult was placed and suggested DC the Seroquel and Xanax and start the Depakote and BuSpar Otherwise doing well to physical therapy walking the hallway Patient's p.o. intake is good Discussed with the daughter and the bedside regarding the patient's current condition all test results and follow-up Physical Exam Vital Signs: Temp Pulse Resp BP Pulse Ox 97.5 F 63 16 140/63 H 95 06/15/17 04:11 06/15/17 07:00 06/15/17 04:11 06/15/17 04:11 06/15/17 04:11 Intake & Output 06/14/17 06/15/17 06/16/17 06:59 06:59 06:59 Intake Total 1035 948 Output Total 0 Balance 1035 948 Weight 99.8 kg General appearance: PRESENT: no acute distress, well-developed, well-nourished Head exam: PRESENT: atraumatic, normocephalic Eye exam: PRESENT: conjunctiva pink, EOMI, PERRLA. ABSENT: scleral icterus Ear exam: PRESENT: normal external ear exam Mouth exam: PRESENT: moist, tongue midline Neck exam: PRESENT: full ROM. ABSENT: carotid bruit, JVD, lymphadenopathy, thyromegaly Respiratory exam: PRESENT: clear to auscultation anitra Cardiovascular exam: PRESENT: RRR. ABSENT: diastolic murmur, rubs, systolic murmur Pulses: PRESENT: normal dorsalis pedis pul, +2 pedal pulses bilateral Vascular exam: PRESENT: normal capillary refill GI/Abdominal exam: PRESENT: normal bowel sounds, soft. ABSENT: distended, guarding, mass, organolmegaly, rebound, tenderness Rectal exam: PRESENT: deferred Musculoskeletal exam: PRESENT: ambulatory Neurological exam: PRESENT: alert, awake, oriented to person, oriented to place , oriented to time, oriented to situation, reflexes normal, CN II-XII grossly intact, normal gait. ABSENT: motor sensory deficit Psychiatric exam: PRESENT: appropriate affect, normal mood. ABSENT: homicidal ideation, suicidal ideation Skin exam: PRESENT: dry, intact, warm. ABSENT: cyanosis, rash Results Laboratory Results: 06/14/17 05:10 06/14/17 05:10 06/12/17 14:20 Catheterized Urine Urine Culture - Final NO GROWTH 2 DAYS 06/12/17 06/12/17 06/13/17 17:00 17:00 00:18 Creatine Kinase 43 45 CK-MB (CK-2) 0.98 Troponin I < 0.012 06/13/17 06/13/17 06/13/17 00:18 06:30 06:30 Creatine Kinase 32 CK-MB (CK-2) 0.77 0.81 Troponin I < 0.012 < 0.012 Impressions: Head MRI 06/12/17 00:00 IMPRESSION: No acute findings. ATROPHY AND CHRONIC MICRO-VASCULAR ISCHEMIC CHANGES. EVIDENCE OF ACUTE STROKE: NO. Chest X-Ray 06/12/17 11:41 IMPRESSION: NO ACUTE RADIOGRAPHIC FINDING IN THE CHEST. Head CT 06/12/17 11:41 IMPRESSION: No CT evidence of acute intracranial changes. 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 EVIDENCE OF ACUTE STROKE: NO. Brain MRI with MRA 06/13/17 00:00 IMPRESSION: NORMAL MRA OF THE [place]. Plan Time Spent: Greater than 30 Minutes - Following a one-week in the office. Follow outpatient psychiatrist for further evaluations
[2017-06-15] MEDS: LANSOPRAZOLE 30 MG TAB.RAP.DR PO SCH (10:16)
[2017-06-15] MEDS: AMLODIPINE BESYLATE 2.5 MG TABLET PO SCH (10:16)
[2017-06-15] MEDS: DIVALPROEX SODIUM 250 MG TABLET.DR PO SCH (10:17)
[2017-06-15] MEDS: CHOLECALCIFEROL (D3) 1,000 UNIT TABLET PO SCH (10:17)
[2017-06-15] MEDS: BUSPIRONE HCL 10 MG TABLET PO SCH (10:17)
[2017-06-15] MEDS: ASPIRIN/DIPYRIDAMOLE 25-200 MG 1 CAP.SR CPMP.12HR PO SCH (10:18)
[2017-06-15] MEDS: METOPROLOL SUCCINATE 50 MG TAB.SR.24H PO SCH (10:18)
[2017-06-15] MEDS: LEVOTHYROXINE SODIUM 0.1 MG TABLET PO SCH (10:18)
[2017-06-15] MEDS: ENOXAPARIN SODIUM INJ 30 MG/0.3 ML DISP.SYRIN SUBCUT SCH (10:56)
== END 2017-06-15 11:29 | disposition home or self-care (01) ==
LOC: ER 11:21 → INTOOBSV 13:42 → EH 13:42 → UNDOADMOB 13:42 → EH 14:00 → 3W 15:45 → EH 15:45 → 3W 06-13 21:41
PROVIDERS: ADMIT Family Medicine; ATTEND Family Medicine
PROC: 3E0234Z Introduction of Serum, Toxoid and Vaccine into Muscle, Percutaneous Approach (ICD-10-PCS; principal; 2017-06-15)
DX: R47.01 Aphasia (principal); G45.9 Transient cerebral ischemic attack, unspecified; F41.9 Anxiety disorder, unspecified; F32.9 Major depressive disorder, single episode, unspecified; I65.22 Occlusion and stenosis of left carotid artery; E78.5 Hyperlipidemia, unspecified; I10 Essential (primary) hypertension; K21.9 Gastro-esophageal reflux disease without esophagitis; E03.9 Hypothyroidism, unspecified; I73.9 Peripheral vascular disease, unspecified; F03.90 Unspecified dementia, unspecified severity, without behavioral disturbance, psychotic disturbance, mood disturbance, and anxiety; R44.3 Hallucinations, unspecified; F17.210 Nicotine dependence, cigarettes, uncomplicated; Z86.73 Personal history of transient ischemic attack (TIA), and cerebral infarction without residual deficits; Z90.49 Acquired absence of other specified parts of digestive tract; Z82.49 Family history of ischemic heart disease and other diseases of the circulatory system; Z82.3 Family history of stroke; Z79.899 Other long term (current) drug therapy; Z79.82 Long term (current) use of aspirin
CPT/HCPCS: 93005; 99285; 36415 ×3; 87086; 84439; 82553 ×2; 82962 ×2; 82550 ×2; 82565; 84443; 85025 ×2; 85027; 85610; 85730; 80048; 80053; 81001; 84484 ×2; 84481; 93306; 70551; 70544; 71010; 70450; 90686; 93010; 97110; 97162; A9270 ×32; J1650 ×2; G8978; G8979; G8980

== ENCOUNTER → 2017-10-11 | Outpatient (CLI) | payer MEDICARE, MEDICAID ==
[2017-10-11 13:47] LABS: ANION GAP 12 (5-19); BLOOD UREA NITROGEN 9 mg/dL (7-20); CALCIUM 10.4 mg/dL (8.4-10.2); CARBON DIOXIDE 31 mmol/L (22-30); CHLORIDE 100 mmol/L (98-107); GLUCOSE 125 mg/dL (75-110); POTASSIUM 3.3 mmol/L (3.6-5.0); SODIUM 142.5 mmol/L (137-145)
== END ==
LOC: LAB 13:15
PROVIDERS: ATTEND Physician Assistant Surgical
DX: Z01.812 Encounter for preprocedural laboratory examination (principal); I10 Essential (primary) hypertension; I70.90 Unspecified atherosclerosis
CPT/HCPCS: 36415; 80048

== ENCOUNTER 2020-03-29 22:55 | Observation (INO) | payer MEDICAID, MEDICARE ==
[2020-03-29 23:55] LABS: ABSOLUTE EOSINOPHILS # (AUTO) 0.1 10^3/uL (0.0-0.6); ABSOLUTE LYMPHOCYTES (AUTO) 5.2 10^3/uL (0.5-4.7); ABSOLUTE MONOCYTES (AUTO) 0.9 10^3/uL (0.1-1.4); ABSOLUTE NEUT (AUTO) 4.5 10^3/uL (1.7-8.2); BASOPHILS % (AUTO) 0.4 % (0-2); HEMATOCRIT 45.9 % (36.0-47.0); HEMOGLOBIN 15.6 g/dL (12.0-15.5); LYMPHOCYTES % (AUTO) 48.3 % (13-45); MEAN CORPUSCULAR HEMOGLOBIN 31.8 pg (27.0-33.4); MEAN CORPUSCULAR VOLUME 94 fl (80-97); PLATELET COUNT 264 10^3/uL (150-450); RED CELL DISTRIBUTION WIDTH 13.4 % (11.5-14.0); SEGMENTED NEUTROPHILS % (AUTO) 42.3 % (42-78); TOTAL CELLS COUNTED % (AUTO) 100 %; WHITE BLOOD COUNT 10.7 10^3/uL (4.0-10.5)
[2020-03-30 00:01] LABS: ALBUMIN 4.8 g/dL (3.5-5.0); ALKALINE PHOSPHATASE 71 U/L (38-126); ANION GAP 10 (5-19); ASPARTATE AMINO TRANSFERASE 32 U/L (14-36); BILIRUBIN,DIRECT 0.1 mg/dL (0.0-0.4); BILIRUBIN,TOTAL 0.6 mg/dL (0.2-1.3); BLOOD UREA NITROGEN 14 mg/dL (7-20); CARBON DIOXIDE 27 mmol/L (22-30); CHLORIDE 99 mmol/L (98-107); CREATINE KINASE 56 U/L (30-135); GLUCOSE 91 mg/dL (75-110); POTASSIUM 3.9 mmol/L (3.6-5.0); TOTAL PROTEIN 8.1 g/dL (6.3-8.2)
[2020-03-30 00:13] LABS: CREATINE KINASE MB 1.74 ng/mL (<4.55); TROPONIN I 0.014 ng/mL
[2020-03-30] MEDS ORDERED: ASPIRIN 81 MG TABLET, CHEWABLE PO ONE (00:28)
[2020-03-30] MEDS ORDERED: NITROGLYCERIN 2% OINTMENT 1 GM PACKET TP ONE (00:29)
--- NOTE | 2020-03-30 00:41 | RADIOLOGY REPORT (SQ) ---
CLINICAL INDICATION: chest pain. TECHNIQUE: A single portable AP view was obtained of the chest at 0000 hours. COMPARISON: None available. FINDINGS: The cardiomediastinal silhouette is normal. The lungs definite chronic changes. No acute process. No evidence of effusion or pneumothorax. The visualized bones are unremarkable. IMPRESSION: No evidence of active intrathoracic disease.
--- NOTE | 2020-03-30 01:48 | ER Document Report ---
Entered by ROD BUI SCRIBE 03/30/20 0016 Acting as scribe for:ASHELY STRAUSS IV, MD ED General - General Chief Complaint: Chest Pain Stated Complaint: CHEST PAIN Time Seen by Provider: 03/30/20 00:11 Mode of Arrival: Wheelchair Information source: Patient Notes: This 75 year old female patient with a history of hypertension and tobacco abuse presents to the ED today with complaints of sudden onset mid-sternal chest pain with associated shortness of breath that occurred at 2200 this evening and lasted for approximately x30 minutes. Patient states that the pain is sharp in nature and radiates to her left shoulder and down her left arm. She reports that her blood pressure has been high off and on for a while and that her pharmacy would not fill her prescription. She admits that she has been smoking pretty heavily these past x2 months since she moved from [place]. She notes that she has not established a PCP here, and that her PCP is still in [place]. Denies chest pain at this time. TRAVEL OUTSIDE OF THE [place] IN LAST 30 DAYS: No - Related Data Allergies/Adverse Reactions: ampicillin [Ampicillin] Allergy (Mild, Verified 06/12/17 11:28) rash Home Medications: pt has meds at bedside Past Medical History - General Information source: Patient, [facility] Records - Social History Smoking Status: Current Every Day Smoker Cigarette use (# per day): Yes Chew tobacco use (# tins/day): No Smoking Education Provided: No Frequency of alcohol use: Rare Drug Abuse: None Family History: CAD, CVA, Hyperlipidemia, Hypertension, Reviewed & Not Pertinent Patient has suicidal ideation: No Patient has homicidal ideation: No - Past Medical History Cardiac Medical History: Reports: Hx Hypercholesterolemia, Hx Hypertension, Hx Peripheral Vascular Disease Pulmonary Medical History: Reports: Hx Asthma, Hx Bronchitis Endocrine Medical History: Reports: Hx Hypothyroidism GI Medical History: Reports: Hx Gastroesophageal Reflux Disease, Hx Hiatal Hernia, Hx Irritable Bowel, Hx Ulcer Musculoskeletal Medical History: Reports Hx Arthritis - HANDS Psychiatric Medical History: Reports: Hx Dementia, Hx Depression Past Surgical History: Reports: Hx Appendectomy, Hx Carotid Endarterectomy, Hx Cholecystectomy, Hx Gynecologic Surgery, Hx Hysterectomy, Hx Tonsillectomy - Immunizations Immunizations up to date: Yes Hx Diphtheria, Pertussis, Tetanus Vaccination: No Hx Pneumococcal Vaccination: 09/12/14 Review of Systems - Review of Systems Constitutional: No symptoms reported EENT: No symptoms reported Cardiovascular: See HPI, Chest pain Respiratory: See HPI, Short of breath Gastrointestinal: No symptoms reported Genitourinary: No symptoms reported Female Genitourinary: No symptoms reported Musculoskeletal: No symptoms reported Skin: No symptoms reported Hematologic/Lymphatic: No symptoms reported Neurological/Psychological: No symptoms reported -: Yes All other systems reviewed and negative Physical Exam - Vital signs Vitals: Temp Pulse Resp BP Pulse Ox 97.9 F 79 16 149/81 H 98 03/29/20 23:09 03/29/20 23:09 03/29/20 23:09 03/29/20 23:09 03/29/20 23:09 - General General appearance: Alert In distress: None - HEENT Head: Normocephalic, Atraumatic Eyes: Normal Pupils: PERRL - Respiratory Respiratory status: No respiratory distress Chest status: Nontender Breath sounds: Normal Chest palpation: Normal - Cardiovascular Rhythm: Regular Heart sounds: Normal auscultation Murmur: No Friction rub: No Gallop: None auscultated - Abdominal Inspection: Normal Distension: No distension Bowel sounds: Normal Tenderness: Nontender - Abdomen soft Organomegaly: No organomegaly - Back Back: Normal, Nontender - Extremities General upper extremity: Normal inspection General lower extremity: Normal inspection. No: Edema - Neurological Neuro grossly intact: Yes Orientation: AAOx4 [place] Coma Scale Eye Opening: Spontaneous [place] Coma Scale Verbal: Oriented [place] Coma Scale Motor: Obeys Commands [place] Coma Scale Total: 15 - Psychological Associated symptoms: Normal affect, Normal mood - Skin Skin Temperature: Warm Skin Moisture: Dry Skin Color: Normal Course - Re-evaluation Re-evalutation: 03/30/20 05:09 Diagnosis and plan of care discussed with patient. Patient agreed to admission given her episode of chest pain and her persistent high blood pressure. - Vital Signs Vital signs: Temp Pulse Resp BP Pulse Ox 97.9 F 79 21 H 173/87 H 97 03/29/20 23:32 03/29/20 23:09 03/30/20 04:01 03/30/20 04:01 03/30/20 04:01 - Laboratory Result Diagrams: 03/29/20 23:25 03/29/20 23:25 Laboratory results interpreted by me: 03/29/20 03/29/20 23:25 23:25 WBC 10.7 H Hgb 15.6 H Lymph % (Auto) 48.3 H Absolute Lymphs (auto) 5.2 H Sodium 136.1 L - Diagnostic Test Radiology reviewed: Reports reviewed - EKG Interpretation by Me Additional EKG results interpreted by me: 03/30/20 05:09 EKG obtained on 03/29/2020 at 2304 hrs. was interpreted by this MD. Findings: Normal sinus rhythm, rate 81, normal axis, P waves proceed QRS complexes, QRS complexes appear narrow, there are no obvious patterns of ST segment elevation or depression present to suggest acute myocardial ischemia or infarction. Impression: Normal sinus rhythm with nonspecific ST segments. - Consults DR. ADAMSON, HOSPITALIST Time consulted: 04:25 - DR. ADAMSON WILL ADMIT PT FOR OBSERVATION Reason for consultation: 03/30/20 05:11 CHEST PAIN Discharge - Discharge Clinical Impression: Chest pain Qualifiers: Chest pain type: unspecified Qualified Code(s): R07.9 - Chest pain, unspecified Hypertension Qualifiers: Hypertension type: unspecified Qualified Code(s): I10 - Essential (primary) hypertension Condition: Stable Disposition: ADMITTED OBSERVATION Admitting Provider: [place] (Hospitalist) Unit Admitted: Telemetry I personally performed the services described in the documentation, reviewed and edited the documentation which was dictated to the scribe in my presence, and it accurately records my words and actions.
[2020-03-30] MEDS ORDERED: ATORVASTATIN CALCIUM 20 MG TABLET PO ONE (02:11)
[2020-03-30] MEDS ORDERED: METOPROLOL SUCCINATE 50 MG TAB.SR.24H PO ONE (02:12)
[2020-03-30] MEDS ORDERED: HYDRALAZINE HCL INJ/PF 20 MG/1 ML SDV IV PRN (04:55)
--- NOTE | 2020-03-30 05:15 | PDOC H&P ---
History of Present Illness History of Present Illness: TRUPTI GUTIERRES is a 75 year old female with a history of hypertension, smoking, hyper lipidemia, hypothyroidism, and mild dementia who has been living in [place] for the past 3 years and has her primary care provider down there, but has been here for the past 2 months visiting. She brought her medications with her but has not been able to get them refilled and she ran out of some of her medications approximately 1 month ago. Some of the medication she ran out of was her blood pressure medication. It looks like she ran out of her Depakote as well. She had a little twinge of chest pain a couple of days ago but it resolved quickly. She said that someone here gave her a small home blood pressure cuff and she is been checking it and it is been pretty high. She had an episode of chest pain yesterday evening and it lasted for about 20 minutes and she checked her blood pressure while that was going on and she said the top number was over 200. There were reports that she said the chest pain was radiating but she told me she just felt it in the middle of her chest and now it is gone. She had some minor troponin elevations but they were barely elevated at all. Her EKG was unremarkable. Past Medical History Cardiac Medical History: Reports: Hyperlipidema, Hypertension, Peripheral Vascular Disease Denies: Atrial Fibrillation, Congestive Heart Failure, Coronary Artery Disease, Myocardial Infarction, Heart Murmur Pulmonary Medical History: Reports: Asthma, Bronchitis Denies: Chronic Obstructive Pulmonary Disease (COPD), Pneumonia, Tuberculosis Neurological Medical History: Denies: Seizures Endocrine Medical History: Reports: Hypothyroidism Denies: Hyperthyroidism Renal/ Medical History: Denies: End Stage Renal Disease GI Medical History: Reports: Gastroesophageal Reflux Disease, Hiatal Hernia Denies: Crohn's Disease Musculoskeltal Medical History: Reports: Arthritis - HANDS Denies: Fibromyalgia Psychiatric Medical History: Reports: Dementia, Depression Denies: Bipolar Disorder, Post Traumatic Stress Disorder Hematology: Reports: Anemia Past Surgical History Past Surgical History: Reports: Appendectomy, Carotid Endarterectomy, Cholecystectomy, Hysterectomy, Tonsillectomy Denies: Amputation, Section, Colostomy, Coronary Artery Bypass Graft, Gastric Bypass Surgery, Herniorrhaphy, Mastectomy, Pacemaker, Tubal Ligation Social History Smoking Status: Current Every Day Smoker Frequency of Alcohol Use: Rare Hx Recreational Drug Use: Yes - 30 years ago Drugs: Cocaine, None Hx Prescription Drug Abuse: Yes Family History Family History: CAD, CVA, Hyperlipidemia, Hypertension, Reviewed & Not Pertinent Parental Family History Reviewed: Yes Children Family History Reviewed: Yes Sibling(s) Family History Reviewed.: Yes Medication/Allergy Home Medications: Alprazolam [Xanax 0.25 mg Tablet] 0.25 mg PO BID 05/21/16 Aspirin/Dipyridamole [Aggrenox 25 mg-200 mg Capsule] 1 each PO BID 05/21/16 Cetirizine HCl [All Day Allergy] 10 mg PO DAILY 05/21/16 Cholecalciferol (Vitamin D3) [D3-2000] 2,000 unit PO DAILY 05/21/16 Donepezil HCl 1 tab PO QPM 05/21/16 Hydrochlorothiazide 25 mg PO DAILY 05/21/16 Levothyroxine Sodium [Tirosint] 100 mcg PO DAILY 05/21/16 Losartan Potassium 1 tab PO DAILY 05/21/16 Memantine HCl [Namenda Xr] 28 mg PO DAILY 05/21/16 Metoprolol Succinate 50 mg PO BID 05/21/16 Omeprazole 1 tab PO AC 05/21/16 Paliperidone [Invega 3 mg Tab.er] 3 mg PO QAM 05/21/16 Quetiapine Fumarate [Seroquel] 300 mg PO DAILY 05/21/16 Rosuvastatin Calcium [Crestor 20 mg Tablet] 20 mg PO DAILY 05/21/16 Levofloxacin [Levaquin 750 mg Tablet] 750 mg PO DAILY #5 tablet 05/23/16 Vancomycin HCl 250 mg PO Q6H #40 capsule 05/23/16 Aspirin/Dipyridamole [Aggrenox 25 mg-200 mg Capsule] 1 each PO DAILY 06/12/17 Atorvastatin Calcium [Lipitor 80 mg Tablet] 80 mg PO QHS 06/12/17 Cholecalciferol (Vitamin D3) [Vitamin D3] 2,000 unit PO DAILY 06/12/17 Levothyroxine Sodium [Synthroid 0.1 mg Tablet] 0.1 mg PO DAILY 06/12/17 Memantine HCl [Namenda Xr] 28 mg PO DAILY 06/12/17 Metoprolol Succinate [Toprol Xl 50 mg Tab.sr] 50 mg PO Q12 06/12/17 Omeprazole 40 mg PO QAM 06/12/17 Amlodipine Besylate [Norvasc 5 mg Tablet] 2.5 mg PO BID #60 tablet 06/14/17 Buspirone HCl [Buspar 10 mg Tablet] 5 mg PO Q12 #60 tablet 06/15/17 Divalproex Sodium [Depakote] 250 mg PO BID #60 tablet. 06/15/17 Allergies/Adverse Reactions: ampicillin [Ampicillin] Allergy (Mild, Verified 06/12/17 11:28) rash Review of Systems All systems: reviewed and no additional remarkable complaints except as stated - All systems were reviewed and were negative except as noted in the HPI Physical Exam Vital Signs: Temp Pulse Resp BP Pulse Ox 97.9 F 79 21 H 173/87 H 97 03/29/20 23:32 03/29/20 23:09 03/30/20 04:01 03/30/20 04:01 03/30/20 04:01 Intake & Output 03/28/20 03/29/20 03/30/20 06:59 06:59 06:59 Weight 54.431 kg General appearance: PRESENT: no acute distress, cooperative, disheveled Head exam: PRESENT: atraumatic, normocephalic Eye exam: PRESENT: EOMI, PERRLA. ABSENT: conjunctival injection, nystagmus, scleral icterus Ear exam: PRESENT: normal external ear exam Mouth exam: PRESENT: moist, neck supple Throat exam: ABSENT: post pharyngeal erythema Neck exam: PRESENT: full ROM. ABSENT: carotid bruit, JVD, lymphadenopathy, meningismus, tenderness, thyromegaly Respiratory exam: PRESENT: clear to auscultation anitra, symmetrical, unlabored. ABSENT: accessory muscle use, chest wall tenderness, crackles, prolonged expiratory phas, rhonchi, tachypnea, wheezes Cardiovascular exam: PRESENT: RRR, +S1, +S2 Pulses: PRESENT: normal carotid pulses Vascular exam: PRESENT: normal capillary refill GI/Abdominal exam: PRESENT: normal bowel sounds, soft. ABSENT: distended, guarding, rebound, tenderness Extremities exam: ABSENT: clubbing, pedal edema Musculoskeletal exam: PRESENT: normal inspection. ABSENT: deformity Neurological exam: PRESENT: alert, awake, oriented to person, oriented to place, oriented to situation, CN II-XII grossly intact. ABSENT: motor sensory deficit Psychiatric exam: PRESENT: appropriate affect, normal mood Skin exam: PRESENT: dry, warm Results Laboratory Results: 03/29/20 23:25 03/29/20 23:25 03/29/20 03/29/20 23:25 23:25 WBC 10.7 H RBC 4.90 Hgb 15.6 H Hct 45.9 MCV 94 MCH 31.8 MCHC 34.0 RDW 13.4 Plt Count 264 Seg Neutrophils % 42.3 Sodium 136.1 L Potassium 3.9 Chloride 99 Carbon Dioxide 27 Anion Gap 10 BUN 14 Creatinine 0.76 Est GFR ( Amer) > 60 Glucose 91 Calcium 10.0 Total Bilirubin 0.6 AST 32 Alkaline Phosphatase 71 Total Protein 8.1 Albumin 4.8 03/29/20 03/29/20 03/30/20 23:25 23:25 02:55 Creatine Kinase 56 CK-MB (CK-2) 1.74 Troponin I 0.014 0.017 Impressions: Chest X-Ray 03/29/20 23:47 IMPRESSION: No evidence of active intrathoracic disease. Assessment and Plan - Diagnosis (1) Hypertensive urgency Is this a current diagnosis for this admission?: Yes Plan: I do not think that this is an acute coronary syndrome picture. I think that this is all from hypertensive urgency because she has not really had a blood pressure medication in about a month. The troponin elevation is extremely mild and would not be unexpected if her pressures had been sustained in the 190s and 200s over a period of time. I ordered some PRN hydralazine and will get her back on her metoprolol, losartan, and amlodipine. We will trend her troponins and keep her on telemetry. (2) Hyperlipidemia Qualifiers: Hyperlipidemia type: other hyperlipidemia Qualified Code(s): E78.49 - Other hyperlipidemia; E78.4 - Other hyperlipidemia Is this a current diagnosis for this admission?: Yes Plan: Continue atorvastatin (3) Dementia Qualifiers: Dementia type: unspecified type Dementia behavioral disturbance: without behavioral disturbance Qualified Code(s): F03.90 - Unspecified dementia without behavioral disturbance Is this a current diagnosis for this admission?: Yes Plan: If she has dementia, is a very mild. I felt like she was a fairly good historian and she knew where she was and how long she had been here. She is on Seroquel and Depakote and so we will continue these. (4) Hypothyroidism Qualifiers: Hypothyroidism type: unspecified Qualified Code(s): E03.9 - Hypothyroidism, unspecified Is this a current diagnosis for this admission?: Yes Plan: Continue levothyroxine (5) Tobacco abuse Is this a current diagnosis for this admission?: Yes Plan: Strongly encourage smoking cessation - Time Time Spent with patient: 35 or more minutes Anticipated discharge: Home Within: within 24 hours
[2020-03-30] MEDS ORDERED: (PENDING PHARMACY ID) (Acetaminophen [Acetaminophen] 500 MG) PO PRN (12:16)
--- NOTE | 2020-03-30 12:47 | PDOC DISCHARGE SUMMARY ---
Impression - Admit/DC Date/PCP Admission Date/Primary Care Provider: 03/30/20 05:05 Discharge Date: 03/30/20 - Discharge Diagnosis (1) Hypertensive urgency Is this a current diagnosis for this admission?: Yes (2) Hyperlipidemia Is this a current diagnosis for this admission?: Yes (3) Hypothyroidism Is this a current diagnosis for this admission?: Yes (4) Tobacco abuse Is this a current diagnosis for this admission?: Yes (5) Dementia Is this a current diagnosis for this admission?: Yes - Additional Information Resuscitation Status: Full Code Discharge Diet: Cardiac Discharge Activity: Activity As Tolerated, Balance Activity w/Rest Prescriptions: Aspirin/Dipyridamole [Aggrenox 25 mg/200 mg Capsule SA] 1 each PO BID 30 Days #30 cpmp.12hr Trazodone HCl [Desyrel 50 mg Tablet] 50 mg PO QHS #30 tab Levothyroxine Sodium 137 mcg PO DAILY #30 tablet Atorvastatin Calcium [Lipitor 20 mg Tablet] 20 mg PO QHS 30 Days #30 tab Metoprolol Tartrate [Lopressor 50 mg Tablet] 50 mg PO Q12 #60 Amlodipine Besylate [Norvasc 5 mg Tablet] 5 mg PO Q12 #60 Amlodipine Besylate [Norvasc 5 mg Tablet] 5 mg PO DAILY #30 tablet Metoprolol Succinate [Toprol Xl 50 mg Tab.sr] 50 mg PO DAILY #30 tab.sr.24h Home Medications: Aspirin/Dipyridamole [Aggrenox 25 mg-200 mg Capsule] 1 each PO BID 05/21/16 Divalproex Sodium [Depakote] 250 mg PO BID #60 tablet. 06/15/17 Acetaminophen 500 mg PO ASDIR PRN 03/30/20 Amlodipine Besylate [Norvasc 5 mg Tablet] 5 mg PO DAILY #30 tablet 03/30/20 Amlodipine Besylate [Norvasc 5 mg Tablet] 5 mg PO Q12 #60 03/30/20 Aspirin/Dipyridamole [Aggrenox 25 mg/200 mg Capsule SA] 1 each PO BID 30 Days #30 cpmp.12hr 03/30/20 Atorvastatin Calcium [Lipitor 20 mg Tablet] 20 mg PO QHS 30 Days #30 tab 03/30/20 Buspirone HCl [Buspar 10 mg Tablet] 5 mg PO Q8 03/30/20 Levothyroxine Sodium 137 mcg PO DAILY #30 tablet 03/30/20 Metoprolol Succinate [Toprol Xl 50 mg Tab.sr] 50 mg PO DAILY #30 tab.sr.24h 03/30/20 Metoprolol Tartrate [Lopressor 50 mg Tablet] 50 mg PO Q12 #60 03/30/20 Omeprazole [Omeprazole] 40 mg PO Q6AM 03/30/20 Trazodone HCl [Desyrel 50 mg Tablet] 50 mg PO QHS #30 tab 03/30/20 History of Present Illiness History of Present Illness: TRUPTI GUTIERRES is a 75 year old female with a history of hypertension, smoking, hyper lipidemia, hypothyroidism, and mild dementia who has been living in [place] for the past 3 years and has her primary care provider down there, but has been here for the past 2 months visiting. She brought her medications with her but has not been able to get them refilled and she ran out of some of her medications approximately 1 month ago. Some of the medication she ran out of was her blood pressure medication. It looks like she ran out of her Depakote as well. She had a little twinge of chest pain a couple of days ago but it resolved quickly. She said that someone here gave her a small home blood pressure cuff and she is been checking it and it is been pretty high. She had an episode of chest pain yesterday evening and it lasted for about 20 minutes and she checked her blood pressure while that was going on and she said the top number was over 200. There were reports that she said the chest pain was radiating but she told me she just felt it in the middle of her chest and now it is gone. She had some minor troponin elevations but they were barely elevated at all. Her EKG was unremarkable. Hospital Course Hospital Course: Benign hospital course. With administration of medication her blood pressure improved dramatically. She reports that she has been out of her medications. She states that she want to try and fill them at [facility] but they would not fill them. There is likely something ongoing that is related to insurance. She is stable for discharge. Prescriptions have been sent to the [facility] in [facility]. Physical Exam Vital Signs: Temp Pulse Resp BP Pulse Ox 98.2 F 77 15 131/67 H 96 03/30/20 11:42 03/30/20 11:42 03/30/20 11:42 03/30/20 11:42 03/30/20 11:42 Intake & Output 03/29/20 03/30/20 03/31/20 06:59 06:59 06:59 Intake Total 240 380 Balance 240 380 Weight 51 kg General appearance: PRESENT: no acute distress, cooperative, well-developed Respiratory exam: PRESENT: clear to auscultation anitra, symmetrical, unlabored. ABSENT: rales, rhonchi, tachypnea, wheezes Cardiovascular exam: PRESENT: RRR, +S1, +S2 GI/Abdominal exam: PRESENT: normal bowel sounds, soft. ABSENT: distended, tenderness Rectal exam: PRESENT: deferred Gentrourinary exam: ABSENT: indwelling catheter Extremities exam: ABSENT: pedal edema Musculoskeletal exam: PRESENT: normal inspection Neurological exam: PRESENT: alert, awake, oriented to person, oriented to place, oriented to situation Psychiatric exam: PRESENT: appropriate affect. ABSENT: agitated, anxious Results Laboratory Results: WBC 10.7 10^3/uL (4.0-10.5) H 03/29/20 23:25 RBC 4.90 10^6/uL (3.72-5.28) 03/29/20 23:25 Hgb 15.6 g/dL (12.0-15.5) H 03/29/20 23:25 Hct 45.9 % (36.0-47.0) 03/29/20 23:25 MCV 94 fl (80-97) 03/29/20 23:25 MCH 31.8 pg (27.0-33.4) 03/29/20 23:25 MCHC 34.0 g/dL (32.0-36.0) 03/29/20 23:25 RDW 13.4 % (11.5-14.0) 03/29/20 23:25 Plt Count 264 10^3/uL (150-450) 03/29/20 23:25 Lymph % (Auto) 48.3 % (13-45) H 03/29/20 23:25 [place] % (Auto) 8.0 % (3-13) 03/29/20 23:25 Eos % (Auto) 1.0 % (0-6) 03/29/20 23:25 Baso % (Auto) 0.4 % (0-2) 03/29/20 23:25 Absolute Neuts (auto) 4.5 10^3/uL (1.7-8.2) 03/29/20 23:25 Absolute Lymphs (auto) 5.2 10^3/uL (0.5-4.7) H 03/29/20 23:25 Absolute Monos (auto) 0.9 10^3/uL (0.1-1.4) 03/29/20 23:25 Absolute Eos (auto) 0.1 10^3/uL (0.0-0.6) 03/29/20 23:25 Absolute Basos (auto) 0.0 10^3/uL (0.0-0.2) 03/29/20 23:25 Seg Neutrophils % 42.3 % (42-78) 03/29/20 23:25 Sodium 136.1 mmol/L (137-145) L 03/29/20 23:25 Potassium 3.9 mmol/L (3.6-5.0) 03/29/20 23:25 Chloride 99 mmol/L (98-107) 03/29/20 23:25 Carbon Dioxide 27 mmol/L (22-30) 03/29/20 23:25 Anion Gap 10 (5-19) 03/29/20 23:25 BUN 14 mg/dL (7-20) 03/29/20 23:25 Creatinine 0.76 mg/dL (0.52-1.25) 03/29/20 23:25 Est GFR ( Amer) > 60 (>60) 03/29/20 23:25 Est GFR (MDRD) Non-Af > 60 (>60) 03/29/20 23:25 Glucose 91 mg/dL (75-110) 03/29/20 23:25 Calcium 10.0 mg/dL (8.4-10.2) 03/29/20 23:25 Total Bilirubin 0.6 mg/dL (0.2-1.3) 03/29/20 23:25 Direct Bilirubin 0.1 mg/dL (0.0-0.4) 03/29/20 23:25 Neonat Total Bilirubin Not Reportable 03/29/20 23:25 Neonat Direct Bilirubin Not Reportable 03/29/20 23:25 Neonat Indirect Bili Not Reportable 03/29/20 23:25 AST 32 U/L (14-36) 03/29/20 23:25 ALT 23 U/L (<35) 03/29/20 23:25 Alkaline Phosphatase 71 U/L (38-126) 03/29/20 23:25 Creatine Kinase 56 U/L (30-135) 03/29/20 23:25 CK-MB (CK-2) 1.74 ng/mL (<4.55) 03/29/20 23:25 Troponin I < 0.012 ng/mL 03/30/20 10:10 Total Protein 8.1 g/dL (6.3-8.2) 03/29/20 23:25 Albumin 4.8 g/dL (3.5-5.0) 03/29/20 23:25 03/29/20 03/30/20 03/30/20 23:25 02:55 10:10 CK-MB (CK-2) 1.74 Troponin I 0.014 0.017 < 0.012 Impressions: Chest X-Ray 03/29/20 23:47 IMPRESSION: No evidence of active intrathoracic disease. Plan Health Concerns: Compliance issues. The patient does have an appointment with a primary care provider in 2 months Tuesday, April 07. Plan of Treatment: I did send in prescriptions for amlodipine and metoprolol to [facility]. In addition trazodone, Aggrenox, Lipitor and levothyroxine. Reviewing the history and physical on the medication reconciliation reveals several discrepancies. The history and physical states that the patient is on Namenda extended release as well as BuSpar and Depakote. Also mentioned are Aricept, hydrochlorothiazide, losartan, Invega, Seroquel and these were not included in the medication reconciliation. Her primary care provider should be able to find out what medication she should be on. Goals: Establish a medication regimen that adequately treats her comorbidities. She also needs to establish with a primary care provider and follow-up regularly Time Spent: Greater than 30 Minutes Stroke Is this a Stroke Patient?: No Acute Heart Failure - Is this a Heart Failure Patient?: No
[2020-03-30 12:54] VITALS: BP 145/83
[2020-03-30] MEDS ORDERED: BUSPIRONE HCL 10 MG TABLET PO SCH (14:00)
[2020-03-30] MEDS ORDERED: ASPIRIN/DIPYRIDAMOLE 25-200 MG 1 CAP.SR CPMP.12HR PO SCH (18:00)
[2020-03-30] MEDS ORDERED: TRAZODONE HCL 50 MG TABLET PO SCH (22:00)
[2020-03-30] MEDS ORDERED: ATORVASTATIN CALCIUM 20 MG TABLET PO SCH (22:00)
[2020-03-30] MEDS ORDERED: DIVALPROEX SODIUM 250 MG TABLET.DR PO SCH (22:00)
[2020-03-30] MEDS ORDERED: AMLODIPINE BESYLATE 5 MG TABLET PO SCH (22:00)
[2020-03-30] MEDS ORDERED: METOPROLOL TARTRATE 50 MG TABLET PO SCH (22:00)
[2020-03-31] MEDS ORDERED: LEVOTHYROXINE SODIUM 0.1 MG TABLET PO SCH (06:00)
--- NOTE | 2020-03-31 10:49 | EKG REPORT ---
SEVERITY:- BORDERLINE ECG - SINUS RHYTHM PROBABLE LEFT ATRIAL ABNORMALITY ANTEROLATERAL T WAVE CHANGES : Confirmed by: Nando Limon MD 31-Mar-2020 10:48:50
== END 2020-03-30 13:10 | disposition home or self-care (01) ==
LOC: ER 22:55 → EH 03-30 05:05 → 4N 03-30 06:08
PROVIDERS: ADMIT Family Medicine; ATTEND Hospitalist
DX: I16.0 Hypertensive urgency (principal); E78.49 Other hyperlipidemia; E03.9 Hypothyroidism, unspecified; R79.89 Other specified abnormal findings of blood chemistry; F03.90 Unspecified dementia, unspecified severity, without behavioral disturbance, psychotic disturbance, mood disturbance, and anxiety; I73.9 Peripheral vascular disease, unspecified; K21.9 Gastro-esophageal reflux disease without esophagitis; F17.210 Nicotine dependence, cigarettes, uncomplicated; Z79.82 Long term (current) use of aspirin; Z79.899 Other long term (current) drug therapy; Z79.890 Hormone replacement therapy; Z82.49 Family history of ischemic heart disease and other diseases of the circulatory system; Z82.3 Family history of stroke
CPT/HCPCS: 93005; 99285; 36415 ×2; 82553; 82550; 85025; 80053; 84484 ×2; 71045; 93010; G0378 ×2; A9270 ×4